=== PATIENT | male | born 1980 | race Two or more races ===

== ENCOUNTER 2018-01-21 11:13 | Emergency (ER) | payer SELFPAY ==
--- NOTE | 2018-01-21 11:49 | ER Document Report ---
ED Medical Screen (RME) - General Chief Complaint: Thumb Injury Stated Complaint: WOUND CHECK Time Seen by Provider: 01/21/18 11:32 Notes: RME DISCLOSURE I have seen this patient as part of a Rapid Medical Evaluation and, if applicable, placed any initially appropriate orders. The patient will be seen and fully evaluated, including a full history and physical exam, by a provider ( in Main ED or Fast Track) when a room becomes available. HISTORY LIMITED 2/2 NON-[place] ISLAND[place] SPEAKING 37-year-old male here with complaints of left thumb pain and infection that has been ongoing for the past few days. 3 days ago, he cut his left hand on an unknown object but did not go see a physician. He has not been taking anything for the symptoms. He has, since cutting it, had swelling redness and pain. TRAVEL OUTSIDE OF THE [place] IN LAST 30 DAYS: No - Related Data Allergies/Adverse Reactions: No Known Allergies Allergy (Verified 01/21/18 11:14) Past Medical History Renal/ Medical History: Denies: Hx Peritoneal Dialysis - Immunizations Hx Diphtheria, Pertussis, Tetanus Vaccination: No Physical Exam - Vital signs Vitals: Temp Pulse Resp BP Pulse Ox 98.8 F 100 17 182/108 H 99 01/21/18 11:17 01/21/18 11:17 01/21/18 11:17 01/21/18 11:17 01/21/18 11:17 Course - Vital Signs Vital signs: Temp Pulse Resp BP Pulse Ox 98.8 F 100 17 182/108 H 99 01/21/18 11:17 01/21/18 11:17 01/21/18 11:17 01/21/18 11:17 01/21/18 11:17
[2018-01-21 12:30] LABS: ABSOLUTE LYMPHOCYTES (AUTO) 0.4 10^3/uL (0.5-4.7); ABSOLUTE MONOCYTES (AUTO) 0.3 10^3/uL (0.1-1.4); ABSOLUTE NEUT (AUTO) 4.8 10^3/uL (1.7-8.2); BASOPHILS % (AUTO) 0.6 % (0-2); EOSINOPHILS % (AUTO) 0.3 % (0-6); HEMATOCRIT 45.3 % (37.9-51.0); HEMOGLOBIN 15.5 g/dL (13.5-17.0); LYMPHOCYTES % (AUTO) 7.5 % (13-45); MEAN CORPUSCULAR HEMOGLOBIN 33.1 pg (27.0-33.4); MEAN CORPUSCULAR HGB CONC 34.2 g/dL (32.0-36.0); MEAN CORPUSCULAR VOLUME 97 fl (80-97); MONOCYTES % (AUTO) 5.6 % (3-13); PLATELET COUNT 112 10^3/uL (150-450); RED BLOOD COUNT 4.67 10^6/uL (4.35-5.55); RED CELL DISTRIBUTION WIDTH 14.3 % (11.5-14.0); TOTAL CELLS COUNTED % (AUTO) 100 %; WHITE BLOOD COUNT 5.6 10^3/uL (4.0-10.5)
--- NOTE | 2018-01-21 12:32 | RADIOLOGY REPORT (SQ) ---
EXAM DESCRIPTION: FINGER LEFT COMPLETED DATE/TIME: 01/21/2018 12:20 pm REASON FOR STUDY: eval osteomyelitis for infected L thumb COMPARISON: None. NUMBER OF VIEWS: Three views. TECHNIQUE: AP, lateral, and oblique images acquired of the left thumb. LIMITATIONS: None. FINDINGS: MINERALIZATION: Normal. BONES: No acute fracture or dislocation. There is no plain film evidence for bony involvement by ost eomyelitis. SOFT TISSUES: Soft tissue swelling is identified involving the 1st digit. No radiopaque foreign body is identified. OTHER: No other significant finding. IMPRESSION: No acute fracture dislocation. No plain film evidence for bony involvement by osteomyel itis. Other findings as noted above COMMENT: SITE OF TRAUMA/COMPLAINT MARKED/STAMP COMPLETED: Yes TECHNICAL DOCUMENTATION: JOB ID: [id number] [employer]- All Rights Reserved Reading location - IP/workstation name: [email or web address]
[2018-01-21 12:51] LABS: ANION GAP 18 (5-19); BLOOD UREA NITROGEN 7 mg/dL (7-20); CALCIUM 10.6 mg/dL (8.4-10.2); CARBON DIOXIDE 23 mmol/L (22-30); CHLORIDE 103 mmol/L (98-107); GLUCOSE 108 mg/dL (75-110); POTASSIUM 4.4 mmol/L (3.6-5.0); SODIUM 143.7 mmol/L (137-145)
[2018-01-21 13:15] LABS: ERYTHROCYTE SEDIMENTATION RATE 26 mm/hr (0-15)
[2018-01-21] MEDS ORDERED: ACETAMINOPHEN 325 MG TABLET PO ONE (13:58)
[2018-01-21] MEDS ORDERED: DIPH/PERTUSS(ACELL)/TETANUS VAC/PF 0.5 ML SYR (>=10YO) IM ONE (13:58)
[2018-01-21] MEDS ORDERED: CEFTRIAXONE INJ 1000 MG VIAL IV ONE (14:45)
--- NOTE | 2018-01-21 15:44 | ER Document Report ---
ED General - General Chief Complaint: Thumb Injury Stated Complaint: WOUND CHECK Time Seen by Provider: 01/21/18 11:32 Mode of Arrival: Ambulatory Information source: Patient TRAVEL OUTSIDE OF THE [place] IN LAST 30 DAYS: No - HPI Patient complains to provider of: cut left thumb Onset: Other - saturday Onset/Duration: Sudden Severity: Moderate Associated symptoms: None Exacerbated by: Denies Relieved by: Denies Similar symptoms previously: No Recently seen / treated by doctor: No Notes: Patient states that he was home cutting wood and he cut his left thumb on Saturday. He states he did not come to be seen because he had been drinking alcohol and was drunk. 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 and so we used 1 of the Cymraes speaking personnel in the emergency department - Related Data Allergies/Adverse Reactions: No Known Allergies Allergy (Verified 01/21/18 11:14) Past Medical History - General Information source: Patient - Social History Smoking Status: Never Smoker Frequency of alcohol use: Social Drug Abuse: None Lives with: Family Family History: Reviewed & Not Pertinent Patient has suicidal ideation: No Patient has homicidal ideation: No - Past Medical History Cardiac Medical History: Reports: None Pulmonary Medical History: Reports: None EENT Medical History: Reports: None Neurological Medical History: Reports: None Endocrine Medical History: Reports: None Renal/ Medical History: Reports: None. Denies: Hx Peritoneal Dialysis Malignancy Medical History: Reports None GI Medical History: Reports: None Musculoskeltal Medical History: Reports None Skin Medical History: Reports None Psychiatric Medical History: Reports: None Traumatic Medical History: Reports: None Infectious Medical History: Reports: None Past Surgical History: Reports: None - Immunizations Hx Diphtheria, Pertussis, Tetanus Vaccination: No Review of Systems - Review of Systems Constitutional: No symptoms reported EENT: No symptoms reported Cardiovascular: No symptoms reported Respiratory: No symptoms reported Gastrointestinal: No symptoms reported Genitourinary: No symptoms reported Male Genitourinary: No symptoms reported Musculoskeletal: See HPI Skin: No symptoms reported Hematologic/Lymphatic: No symptoms reported Neurological/Psychological: No symptoms reported Physical Exam - Vital signs Vitals: Temp Pulse Resp BP Pulse Ox 98.8 F 100 17 182/108 H 99 01/21/18 11:17 01/21/18 11:17 01/21/18 11:17 01/21/18 11:17 01/21/18 11:17 - Notes Notes: PHYSICAL EXAMINATION: GENERAL: Well-appearing, well-nourished and in no acute distress. HEAD: Atraumatic, normocephalic. EYES: Pupils equal round and reactive to light, extraocular movements intact, sclera anicteric, conjunctiva are normal. ENT: Nares patent, oropharynx clear without exudates. Moist mucous membranes. NECK: Normal range of motion, supple without lymphadenopathy LUNGS: Breath sounds clear to auscultation bilaterally and equal. No wheezes rales or rhonchi. HEART: Regular rate and rhythm without murmurs ABDOMEN: Soft, nontender, nondistended abdomen. No guarding, no rebound. No masses appreciated. Musculoskeletal: Normal range of motion, no pitting or edema. No cyanosis. Patient has 2 cm laceration to the pad of his left thumb distal to the IP joint. There is no signs or symptoms or infection. There is no foreign body with exploration. Patient has full range of motion of his thumb. It is neurovascularly intact. NEUROLOGICAL: Cranial nerves grossly intact. Normal speech, normal gait. Normal sensory, motor exams PSYCH: Normal mood, normal affect. SKIN: Warm, Dry, normal turgor, no rashes or lesions noted. Course - Vital Signs Vital signs: Temp Pulse Resp BP Pulse Ox 98.8 F 100 17 182/108 H 99 01/21/18 11:17 01/21/18 11:17 01/21/18 11:17 01/21/18 11:17 01/21/18 11:17 - Laboratory Result Diagrams: 01/21/18 12:01 01/21/18 12:01 Laboratory results interpreted by me: 01/21/18 01/21/18 12:01 12:01 RDW 14.3 H Plt Count 112 L Seg Neutrophils % 86.0 H Lymphocytes % 7.5 L Absolute Lymphocytes 0.4 L ESR 26 H Calcium 10.6 H Discharge - Discharge Clinical Impression: Thumb laceration, Tetanus toxoid vaccination administered at current visit Condition: Stable Disposition: HOME, SELF-CARE Instructions: Tetanus Immunization Given ([facility]), Laceration Care ([facility]), Prophylactic Antibiotic ([facility]) Additional Instructions: Follow up with your physician tomorrow for further care or return to the ED IMMEDIATELY if symptoms worsen or new concerns occur. If you cannot afford to follow up with your primary care physician a list of low cost clinics have been provided at the end of your discharge papers as well. Prescriptions: Cephalexin Monohydrate [Keflex 500 mg Capsule] 500 mg PO Q6H 5 Days #20 capsule Hydrocodone/Acetaminophen [Letart 5-325 mg Tablet] 1 tab PO Q6 3 Days #12 tablet Referrals: [facility] [Outside] - Follow up as needed Print Language: Cymraes
[2018-01-21 16:05] VITALS: BP 169/90
== END 2018-01-21 16:05 | disposition home or self-care (01) ==
LOC: ER 11:13
DX: S61.012A Laceration without foreign body of left thumb without damage to nail, initial encounter (principal); W45.8XXA Other foreign body or object entering through skin, initial encounter; Y93.89 Activity, other specified; Y92.009 Unspecified place in unspecified non-institutional (private) residence as the place of occurrence of the external cause; Z23 Encounter for immunization
CPT/HCPCS: 99283; 90471; 96365; 36415; 87040; 85025; 85652; 80048; 73140; 90715; J0696

== ENCOUNTER 2019-03-18 06:37 | Emergency (ER) | payer SELFPAY ==
--- NOTE | 2019-03-18 09:33 | ER Document Report ---
ED General - General Chief Complaint: Vomiting Stated Complaint: ABDOMINAL PAIN Time Seen by Provider: 03/18/19 09:20 Primary Care Provider: QUINCY HINKLE MD [ACTIVE STAFF] - Follow up as needed (This is the number the GI doctor) Mode of Arrival: Ambulatory Information source: Patient Notes: This is a 38-year-old Maltese-speaking man who was referred to the emergency room because of elevated liver function test. Patient does state he has had intermittent right-sided abdominal pain for the past week. He denies being on any medicines or any allergies to medicines. He denies cigarette smoking. He does report 3 beers after working every once in a while. He does work several hours a day. Otherwise no medical problems. He denies any fever or abdominal pain. He denies any medical problems when he was in [place]. Patient was seen at a local urgent care and had blood work. When the liver enzymes were elevated, he was promptly referred to the emergency room. Review of systems: Patient does report that he gets discomfort when laying down flat and he frequently regurgitates food. TRAVEL OUTSIDE OF THE [place] IN LAST 30 DAYS: No - HPI Onset: Last week Onset/Duration: Gradual Quality of pain: No pain Severity: None Pain Level: Denies Associated symptoms: denies: Chills, Headache, Shortness of breath Exacerbated by: Denies Relieved by: Denies Similar symptoms previously: Yes Recently seen / treated by doctor: Yes - Related Data Allergies/Adverse Reactions: No Known Allergies Allergy (Verified 01/21/18 11:14) Past Medical History - General Information source: Friend - Translation via friend - Social History Smoking Status: Never Smoker Cigarette use (# per day): No Chew tobacco use (# tins/day): No Frequency of alcohol use: Often-severe Lives with: Friend Family History: Reviewed & Not Pertinent Patient has suicidal ideation: No Patient has homicidal ideation: No - Medical History Medical History: Negative Renal/ Medical History: Denies: Hx Peritoneal Dialysis Surgical Hx: Negative - Immunizations Hx Diphtheria, Pertussis, Tetanus Vaccination: No Review of Systems - Review of Systems Constitutional: denies: Chills, Fever EENT: No symptoms reported Cardiovascular: denies: Chest pain, Palpitations, Heart racing Respiratory: No symptoms reported Gastrointestinal: See HPI Genitourinary: No symptoms reported Male Genitourinary: No symptoms reported Musculoskeletal: No symptoms reported Skin: No symptoms reported Hematologic/Lymphatic: No symptoms reported Neurological/Psychological: No symptoms reported Physical Exam - Vital signs Vitals: Temp Pulse Resp BP Pulse Ox 98.9 F 89 20 147/92 H 99 03/18/19 06:49 03/18/19 06:49 03/18/19 06:49 03/18/19 06:49 03/18/19 06:49 Notes: Physical exam: GENERAL: 88-year-old man, alert and oriented x3, no acute distress HEAD: Atraumatic, normocephalic. EYES: Pupils equal round and reactive to light, extraocular movements intact, sclera anicteric, conjunctiva are normal. ENT: TMs normal, nares patent, oropharynx clear without exudates. Moist mucous membranes. NECK: Normal range of motion, supple without obvious mass or JVD. LUNGS: Breath sounds clear to auscultation bilaterally and equal. No wheezes ra les or rhonchi. HEART: Regular rate and rhythm without murmurs, rubs or gallops. ABDOMEN: Soft, normoactive bowel sounds. No tenderness to palpation. No guarding, no rebound. No masses appreciated. EXTREMITIES: Normal range of motion, no pitting or edema. No clubbing or cyanosis. NEUROLOGICAL: Cranial nerves II through XII grossly intact. Normal speech, moving all extremities. PSYCH: Normal mood, normal affect. SKIN: Warm, Dry, normal turgor, no rashes or lesions noted. Course - Vital Signs Vital signs: Temp Pulse Resp BP Pulse Ox 98.8 F 89 18 137/92 H 100 03/18/19 15:16 03/18/19 15:16 03/18/19 15:16 03/18/19 15:16 03/18/19 15:16 - Laboratory Result Diagrams: 03/18/19 09:32 03/18/19 09:32 Laboratory results interpreted by me: 03/18/19 03/18/19 03/18/19 09:32 09:32 09:32 RBC 4.30 L MCV 98 H RDW 14.5 H Seg Neuts % (Manual) 92 H Lymphocytes % (Manual) 3 L Abs Lymphs (Manual) 0.2 L Calcium 10.4 H AST 235 H ALT 346 H Alkaline Phosphatase 147 H Total Protein 9.1 H Albumin 5.1 H Urine Protein 30 H Urine Blood LARGE H - Diagnostic Test Radiology reviewed: Image reviewed, Reports reviewed - Ultrasound shows no gallbladder tenderness, normal gallbladder wall, no dilated biliary ducts. There is some sludge. CT of the abdomen shows no hydronephrosis or intra- abdominal acute process Discharge - Discharge Clinical Impression: Hepatitis, GERD (gastroesophageal reflux disease) Condition: Stable Disposition: HOME, SELF-CARE Instructions: Hepatitis ([facility]), Reflux Disease (GERD) ([facility]) Additional Instructions: Your liver enzymes are elevated. The ultrasound of the liver look good. There was no evidence of infection of your gallbladder. I want you to avoid all alcohol and beer. I want you to avoid Tylenol You can take ibuprofen for pain. You do need to follow-up with a primary care doctor: I left the number for the [facility]. Also want you to follow-up with a GI doctor: I left the number to Dr. Hinkle on the chart. I do think you have symptoms of reflux as well. I want you to take the medicine as prescribed. Prescriptions: Omeprazole Magnesium [Prilosec Otc] 20 mg PO GERARD #30 tablet. Referrals: QUINCY HINKLE MD [ACTIVE STAFF] - Follow up as needed (This is the number the GI doctor)
[2019-03-18 09:52] LABS: INTERNATIONAL RATION (INR) 0.91; PROTHROMBIN TIME 12.7 SEC (11.4-15.4)
[2019-03-18 09:55] LABS: APPEARANCE,URINE SLIGHTLY-CLOUDY; BILIRUBIN,URINE NEGATIVE (NEGATIVE); COLOR,URINE YELLOW; GLUCOSE, URINE NEGATIVE (NEGATIVE); HEMATOCRIT 42.1 % (37.9-51.0); HEMOGLOBIN 14.3 g/dL (13.5-17.0); KETONES,URINE NEGATIVE (NEGATIVE); LEUKOCYTE ESTERASE,URINE NEGATIVE (NEGATIVE); MEAN CORPUSCULAR HEMOGLOBIN 33.2 pg (27.0-33.4); MEAN CORPUSCULAR VOLUME 98 fl (80-97); NITRITE,URINE NEGATIVE (NEGATIVE); PLATELET COUNT 156 10^3/uL (150-450); PROTEIN,URINE 30 mg/dL (NEGATIVE); RED CELL DISTRIBUTION WIDTH 14.5 % (11.5-14.0); URINE SPECIFIC GRAVITY 1.016; UROBILINOGEN,URINE NEGATIVE mg/dL (<2.0)
[2019-03-18 10:05] LABS: ALANINE AMINOTRANSFERASE 346 U/L (21-72); ALBUMIN 5.1 g/dL (3.5-5.0); ALKALINE PHOSPHATASE 147 U/L (38-126); ANION GAP 12 (5-19); ASPARTATE AMINO TRANSFERASE 235 U/L (17-59); BILIRUBIN,DIRECT 0.2 mg/dL (0.0-0.4); BILIRUBIN,TOTAL 0.6 mg/dL (0.2-1.3); BLOOD UREA NITROGEN 9 mg/dL (7-20); CALCIUM 10.4 mg/dL (8.4-10.2); CARBON DIOXIDE 27 mmol/L (22-30); CHLORIDE 103 mmol/L (98-107); GLUCOSE 110 mg/dL (75-110); LIPASE 168.7 U/L (23-300); POTASSIUM 4.9 mmol/L (3.6-5.0); SODIUM 142.3 mmol/L (137-145); TOTAL PROTEIN 9.1 g/dL (6.3-8.2)
[2019-03-18 10:23] LABS: ABSOLUTE LYMPHOCYTES# (MANUAL) 0.2 10^3/uL (0.5-4.7); ABSOLUTE MONOCYTES # (MANUAL) 0.3 10^3/uL (0.1-1.4); ABSOLUTE NEUTROPHILS# (MANUAL) 4.6 10^3/uL (1.7-8.2); BASOPHILS % (MANUAL) 0 % (0-2); EOSINOPHILS % (MANUAL) 0 % (0-6); LYMPHOCYTES % (MANUAL) 3 % (13-45); MONOCYTES % (MANUAL) 5 % (3-13); SEGMENTED NEUTROPHILS % (MAN) 92 % (42-78); TOTAL CELLS COUNTED 100
[2019-03-18 10:24] LABS: ANISOCYTOSIS SLIGHT; PLATELET COMMENT ADEQUATE; POIKILOCYTOSIS 1+; STOMATOCYTES 1+
--- NOTE | 2019-03-18 11:02 | RADIOLOGY REPORT (SQ) ---
EXAM DESCRIPTION: CHEST 2 VIEWS COMPLETED DATE/TIME: 03/18/2019 10:44 am REASON FOR STUDY: cp COMPARISON: None. EXAM PARAMETERS: NUMBER OF VIEWS: two views TECHNIQUE: Digital Frontal and Lateral radiographic views of the chest acquired. RADIATION DOSE: NA LIMITATIONS: none FINDINGS: LUNGS AND PLEURA: No opacities, masses or pneumothorax. No pleural effusion. MEDIASTINUM AND HILAR STRUCTURES: No masses or contour abnormalities. HEART AND VASCULAR STRUCTURES: Heart normal size. No evidence for failure. BONES: No acute findings. HARDWARE: None in the chest. OTHER: No other significant finding. IMPRESSION: NO ACUTE RADIOGRAPHIC FINDING IN THE CHEST. TECHNICAL DOCUMENTATION: JOB ID: [id number] [employer]- All Rights Reserved Reading location - IP/workstation name: [email or web address]
--- NOTE | 2019-03-18 11:22 | RADIOLOGY REPORT (SQ) ---
EXAM DESCRIPTION: U/S ABDOMEN LTD W/DOPPLER COMPLETED DATE/TIME: 03/18/2019 11:10 am REASON FOR STUDY: elevated LFTs, right abd pain COMPARISON: None. TECHNIQUE: Dynamic and static grayscale images acquired of the abdomen and recorded on PACS. Leenao kaylee selected color Doppler and spectral images recorded. LIMITATIONS: None. FINDINGS: PANCREAS: No masses. Visualized pancreatic duct normal caliber. LIVER: No masses. Increased echogenicity. LIVER VASCULATURE: Normal directional flow of the main portal vein and hepatic veins. GALLBLADDER: No stones. Sludge in the gallbladder. Normal wall thickness. No pericholecystic fluid. ULTRASOUND-DETECTED AGUSTIN'S SIGN: Negative. INTRAHEPATIC DUCTS AND COMMON DUCT: CBD and intrahepatic ducts normal caliber. No filling defects. INFERIOR VENA CAVA: Normal flow. AORTA: No aneurysm. RIGHT KIDNEY: Normal size. Normal echogenicity. No solid or suspicious masses. No hydronephrosis. No calcifications. PERITONEAL AND RIGHT PLEURAL SPACE: No ascites or effusions. OTHER: No other significant findings. IMPRESSION: 1. Gall sludge without evidence of discrete calculi. No gallbladder wall thickening. No pericholecystic fluid. No biliary ductal dilation. Negative sonographic Agustin sign. Patency of the cystic and common bile ducts may be evaluated by HIDA if desired. 2. Hepatic steatosis. TECHNICAL DOCUMENTATION: JOB ID: [id number] [employer]- All Rights Reserved Reading location - IP/workstation name: [email or web address]
--- NOTE | 2019-03-18 13:24 | RADIOLOGY REPORT (SQ) ---
EXAM DESCRIPTION: CT ABD/PELVIS NO ORAL OR IV COMPLETED DATE/TIME: 03/18/2019 1:11 pm REASON FOR STUDY: right flank pain COMPARISON: None. TECHNIQUE: CT scan of the abdomen and pelvis performed without intravenous or oral contrast. Images reviewed with lung, soft tissue, and bone windows. Reconstructed coronal and sagittal MPR images revi ewed. All images stored on PACS. All CT scanners at this facility use dose modulation, iterative reconstruction, and/or weight based d osing when appropriate to reduce radiation dose to as low as reasonably achievable (ALARA). [facility]: Dose Right [facility]: CareDose [facility]: Dose Right [facility]: Teradose 4D [facility]: Smart Mulu RADIATION DOSE: CT Rad equipment meets quality standard of care and radiation dose reduction techniq ues were employed. CTDIvol: 5.0 mGy. DLP: 281 mGy-cm.mGy. LIMITATIONS: None. FINDINGS: LOWER CHEST: No significant findings. No nodules or infiltrates. NON-CONTRASTED LIVER, SPLEEN, ADRENALS: Evaluation limited by lack of IV contrast. No identified sign ificant masses. PANCREAS: No masses. No peripancreatic inflammatory changes. GALLBLADDER: No identified stones by CT criteria. No inflammatory changes to suggest cholecystitis. RIGHT KIDNEY AND URETER: No suspicious masses. Assessment limited by lack of IV contrast. No signif icant calcifications. No hydronephrosis or hydroureter. LEFT KIDNEY AND URETER: No suspicious masses. Assessment limited by lack of IV contrast. No signifi cant calcifications. No hydronephrosis or hydroureter. AORTA AND RETROPERITONEUM: No aneurysm. No retroperitoneal masses or adenopathy. BOWEL AND PERITONEAL CAVITY: No obvious masses or inflammatory changes. No free fluid. APPENDIX: Surgically absent. PELVIS, BLADDER, AND ABDOMINAL WALL:No abnormal masses. No free fluid. Bladder normal. BONES: No significant findings. OTHER: No other significant finding. IMPRESSION: NO SIGNIFICANT OR ACUTE PROCESS IN THE ABDOMEN OR PELVIS. COMMENT: Quality ID # [id number]: Final reports with documentation of one or more dose reduction techniques (e.g., Automated exposure control, adjustment of the mA and/or kV according to patient size, use of iterative reconstruction technique) TECHNICAL DOCUMENTATION: JOB ID: [id number] [employer]- All Rights Reserved Reading location - IP/workstation name: [email or web address]
[2019-03-18 15:17] VITALS: BP 137/92
== END 2019-03-18 15:18 | disposition home or self-care (01) ==
LOC: ER 06:37
DX: K75.9 Inflammatory liver disease, unspecified (principal); K21.9 Gastro-esophageal reflux disease without esophagitis; R79.89 Other specified abnormal findings of blood chemistry; R10.9 Unspecified abdominal pain; R11.10 Vomiting, unspecified
CPT/HCPCS: 36415; 71046; 74176; 76705; 80053; 81001; 83690; 85025; 85610; 93976; 99284

== ENCOUNTER 2019-05-23 15:23 | Emergency (ER) | payer SELFPAY ==
[2019-05-23 15:28] VITALS: BP 171/92
--- NOTE | 2019-05-23 15:41 | ER Document Report ---
ED Medical Screen (RME) - General Chief Complaint: General Weakness Stated Complaint: NOSEBLEED Time Seen by Provider: 05/23/19 15:35 Mode of Arrival: Ambulatory Information source: Patient, Friend Notes: Patient presents to the emergency department with frequent nosebleeds. Reports he was treated for this back in March given some kind of medication and felt much better. He reports return of the nosebleeds recently. He has been prescribed lisinopril for his high blood pressure but just got the prescription filled . Reports he had another really bad nosebleed Saturday night . Patient now feels very weak. Patient speaks primarily Burkinan. Friend at the side was translating. I have greeted and performed a rapid initial assessment of this patient. A comprehensive ED assessment and evaluation of the patient, analysis of test results and completion of the medical decision making process will be conducted by additional ED providers. Dictation of this chart was performed using voice recognition software; therefore, there may be some unintended grammatical errors. TRAVEL OUTSIDE OF THE [place] IN LAST 30 DAYS: No - Related Data Allergies/Adverse Reactions: No Known Allergies Allergy (Verified 05/23/19 15:23) Past Medical History - Social History Chew tobacco use (# tins/day): No Frequency of alcohol use: Occasional Drug Abuse: None - Past Medical History Cardiac Medical History: Reports: Hx Hypertension Renal/ Medical History: Denies: Hx Peritoneal Dialysis - Immunizations Hx Diphtheria, Pertussis, Tetanus Vaccination: No Physical Exam - Vital signs Vitals: Temp Pulse Resp BP Pulse Ox 98.9 F 93 18 171/92 H 94 05/23/19 15:28 05/23/19 15:28 05/23/19 15:28 05/23/19 15:28 05/23/19 15:28 Course - Vital Signs Vital signs: Temp Pulse Resp BP Pulse Ox 98.9 F 93 18 171/92 H 94 05/23/19 15:28 05/23/19 15:28 05/23/19 15:28 05/23/19 15:28 05/23/19 15:28
[2019-05-23 15:59] LABS: ABSOLUTE EOSINOPHILS # (AUTO) 0.1 10^3/uL (0.0-0.6); ABSOLUTE LYMPHOCYTES (AUTO) 0.6 10^3/uL (0.5-4.7); ABSOLUTE MONOCYTES (AUTO) 0.7 10^3/uL (0.1-1.4); ABSOLUTE NEUT (AUTO) 2.3 10^3/uL (1.7-8.2); BASOPHILS % (AUTO) 1.3 % (0-2); EOSINOPHILS % (AUTO) 2.3 % (0-6); HEMATOCRIT 38.4 % (37.9-51.0); HEMOGLOBIN 13.1 g/dL (13.5-17.0); LYMPHOCYTES % (AUTO) 16.9 % (13-45); MEAN CORPUSCULAR HEMOGLOBIN 33.2 pg (27.0-33.4); MEAN CORPUSCULAR HGB CONC 34.1 g/dL (32.0-36.0); MEAN CORPUSCULAR VOLUME 97 fl (80-97); MONOCYTES % (AUTO) 17.9 % (3-13); PLATELET COUNT 100 10^3/uL (150-450); RED BLOOD COUNT 3.96 10^6/uL (4.35-5.55); RED CELL DISTRIBUTION WIDTH 16.2 % (11.5-14.0); SEGMENTED NEUTROPHILS % (AUTO) 61.6 % (42-78); TOTAL CELLS COUNTED % (AUTO) 100 %; WHITE BLOOD COUNT 3.7 10^3/uL (4.0-10.5)
[2019-05-23] MEDS ORDERED: THROMBIN (BOVINE) 5000 UNIT EPITAXIS KIT TP ONE (16:07)
[2019-05-23] MEDS ORDERED: OXYMETAZOLINE HCL 0.05% NASAL SPRAY 15 ML BOTTLE NASL ONE (16:07)
[2019-05-23] MEDS ORDERED: LIDOCAINE 4% TOPICAL SOLN 50 ML TOP ONE (16:07)
[2019-05-23 16:13] LABS: INTERNATIONAL RATION (INR) 0.99; PROTHROMBIN TIME 13.1 SEC (11.4-15.4)
[2019-05-23 16:14] LABS: PARTIAL THROMBOPLASTIN TIME 29.7 SEC (23.5-35.8)
[2019-05-23 16:18] LABS: ALANINE AMINOTRANSFERASE 243 U/L (21-72); ALBUMIN 4.8 g/dL (3.5-5.0); ALKALINE PHOSPHATASE 106 U/L (38-126); ANION GAP 12 (5-19); ASPARTATE AMINO TRANSFERASE 343 U/L (17-59); BILIRUBIN,DIRECT 0.3 mg/dL (0.0-0.4); BILIRUBIN,TOTAL 0.7 mg/dL (0.2-1.3); BLOOD UREA NITROGEN 6 mg/dL (7-20); CALCIUM 9.8 mg/dL (8.4-10.2); CARBON DIOXIDE 27 mmol/L (22-30); CHLORIDE 100 mmol/L (98-107); GLUCOSE 90 mg/dL (75-110); POTASSIUM 4.4 mmol/L (3.6-5.0); SODIUM 139.1 mmol/L (137-145); TOTAL PROTEIN 8.4 g/dL (6.3-8.2)
--- NOTE | 2019-05-23 16:18 | ER Document Report ---
ED General - General Chief Complaint: General Weakness Stated Complaint: NOSEBLEED Time Seen by Provider: 05/23/19 15:35 Mode of Arrival: Ambulatory Information source: Patient, Friend, [facility] Records Notes: 39-year-old male with hypertension presents with complaint of nosebleeds. Patient states that he has had 3 nosebleeds this week. His last nosebleed was yesterday. His first nosebleed was 5 days prior to arrival and reportedly last over 2 hours. Patient denies any prior similar symptoms, trauma to the nose, headache. Patient is complaining of general malaise but states that he works outside daily in the heat. Patient was recently placed on lisinopril for his high blood pressure. TRAVEL OUTSIDE OF THE [place] IN LAST 30 DAYS: No - HPI Onset: Other Onset/Duration: Intermittent Quality of pain: No pain Severity: None Pain Level: Denies Associated symptoms: Weakness. denies: Chest pain, Headache, Nausea, Vomiting, Shortness of breath Exacerbated by: Denies Relieved by: Denies Similar symptoms previously: Yes Recently seen / treated by doctor: Yes - Related Data Allergies/Adverse Reactions: No Known Allergies Allergy (Verified 05/23/19 15:23) Past Medical History - General Information source: Patient, Friend - Social History Smoking Status: Never Smoker Chew tobacco use (# tins/day): No Frequency of alcohol use: Occasional Drug Abuse: None Lives with: Family Family History: Reviewed & Not Pertinent Patient has suicidal ideation: No Patient has homicidal ideation: No - Past Medical History Cardiac Medical History: Reports: Hx Hypertension Renal/ Medical History: Denies: Hx Peritoneal Dialysis - Immunizations Hx Diphtheria, Pertussis, Tetanus Vaccination: No Review of Systems - Review of Systems Notes: REVIEW OF SYSTEMS: CONSTITUTIONAL : Denies fever, chills, or sweats. Denies recent illness. Denies weight loss, recent hospitalizations. EENT: Denies visual changes, eye pain. Denies sore throat, oral lesions, difficulty swallowing. CARDIOVASCULAR: Denies chest pain. Denies palpitations. Denies lower extremity edema. RESPIRATORY: Denies cough. Denies shortness of breath, wheezing. GASTROINTESTINAL: Denies abdominal pain or distention. Denies nausea, vomiting, or diarrhea. Denies blood in vomitus, stools, or per rectum. Denies black, tarry stools. Denies constipation. GENITOURINARY: Denies difficulty urinating, painful urination, frequency, blood in urine, testicular pain or penile discharge. MUSCULOSKELETAL: Denies back or neck pain or stiffness. Denies joint pain or swelling. SKIN: Denies rash, lesions or sores. HEMATOLOGIC : Denies easy bruising or bleeding. LYMPHATIC: Denies swollen glands. NEUROLOGICAL: Denies confusion or altered mental status. Denies loss of consciousness. Denies dizziness or lightheadedness. Denies headache. Denies paralysis. Denies problems difficulty with ambulation, slurred speech. Denies sensory loss, numbness, or tingling. Denies seizures. PSYCHIATRIC: Denies anxiety or stress. Denies depression, suicidal ideation, or Physical Exam - Vital signs Vitals: Temp Pulse Resp BP Pulse Ox 98.9 F 93 18 171/92 H 94 05/23/19 15:28 05/23/19 15:28 05/23/19 15:28 05/23/19 15:28 05/23/19 15:28 - Notes Notes: PHYSICAL EXAMINATION: GENERAL: Well-appearing, well-nourished and in no acute distress. HEAD: Atraumatic, normocephalic. EYES: Pupils equal round and reactive to light, extraocular movements intact, sclera anicteric, conjunctiva are normal. ENT: Nares patent, no active bleeding from the naris but there is a raw area anteriorly on the right side. Oropharynx clear without exudates. Moist mucous membranes. NECK: Normal range of motion, supple without lymphadenopathy LUNGS: Breath sounds clear to auscultation bilaterally and equal. No wheezes rales or rhonchi. HEART: Regular rate and rhythm without murmurs ABDOMEN: Soft, nontender, nondistended abdomen. No guarding, no rebound. No masses appreciated. Musculoskeletal: Normal range of motion, no pitting or edema. No cyanosis. NEUROLOGICAL: Cranial nerves grossly intact. Normal speech, normal gait. Normal sensory, motor exams PSYCH: Normal mood, normal affect. SKIN: Warm, Dry, normal turgor, no rashes or lesions noted. Course - Re-evaluation Re-evalutation: Laboratory 05/23/19 05/23/19 05/23/19 15:45 15:45 15:52 WBC 3.7 L RBC 3.96 L Hgb 13.1 L Hct 38.4 MCV 97 MCH 33.2 MCHC 34.1 RDW 16.2 H Plt Count 100 L Seg Neutrophils % 61.6 Lymphocytes % 16.9 Monocytes % 17.9 H Eosinophils % 2.3 Basophils % 1.3 Absolute Neutrophils 2.3 Absolute Lymphocytes 0.6 Absolute Monocytes 0.7 Absolute Eosinophils 0.1 Absolute Basophils 0.0 PT 13.1 INR 0.99 APTT 29.7 Sodium 139.1 Potassium 4.4 Chloride 100 Carbon Dioxide 27 Anion Gap 12 BUN 6 L Creatinine 0.55 Est GFR ( Amer) > 60 Est GFR (Non-Af Amer) > 60 Glucose 90 Calcium 9.8 Total Bilirubin 0.7 Direct Bilirubin 0.3 Neonat Total Bilirubin Not Reportable Neonat Direct Bilirubin Not Reportable Neonat Indirect Bili Not Reportable AST 343 H ALT 243 H Alkaline Phosphatase 106 Total Protein 8.4 H Albumin 4.8 Temp Pulse Resp BP Pulse Ox 98.9 F 93 18 171/92 H 94 05/23/19 15:28 05/23/19 15:28 05/23/19 15:28 05/23/19 15:28 05/23/19 15:28 05/24/19 23:51 39-year-old male presents with concern for 3 nosebleeds in the last week. He is not actively bleeding. Patient was given Afrin, advised to use Emmet nasal mist. Patient was observed in the emergency department for over 2 hours without recurrence of nosebleeding. Patient was evaluated and treated as appropriate for the patient's presenting symptoms and complaint, with consideration of any critical or life threatening conditions that may be associated with their obtained history and exam as noted above. All results were discussed with patient. Patient provided the opportunity to ask questions, and express concerns. Patient was educated on treatments based on their presumed diagnosis as noted above. At this time we will discharge the patient with return precautions and follow-up recommendations. Verbal discharge instructions given a the bedside. Medication warnings reviewed. Patient is in agreement with this plan and has verbalized understanding of return precautions. After careful consideration I feel that that patient can be safely discharged from the emergency department, they were advised to followup with a primary care physician in 2-3 days. Dictation on this chart was performed using voice recognition software and may result in unintended grammatical, spelling, syntax or errors. - Vital Signs Vital signs: Temp Pulse Resp BP Pulse Ox 98.9 F 93 18 171/92 H 94 05/23/19 15:28 05/23/19 15:28 05/23/19 15:28 05/23/19 15:28 05/23/19 15:28 - Laboratory Result Diagrams: 05/23/19 15:45 05/23/19 15:45 Laboratory results interpreted by me: 05/23/19 05/23/19 15:45 15:45 WBC 3.7 L RBC 3.96 L Hgb 13.1 L RDW 16.2 H Plt Count 100 L Monocytes % 17.9 H BUN 6 L AST 343 H ALT 243 H Total Protein 8.4 H Discharge - Discharge Clinical Impression: Epistaxis Condition: Good Disposition: HOME, SELF-CARE Instructions: Nosebleed Instructions ([facility]) Additional Instructions: You were seen today for a nosebleed. If this restarts please apply direct pressure to the area for 15 minutes without releasing pressure. You can use 4-5 sprays the Afrin (oxymetazoline) spray that was given to you here in the emergency room into the affected side prior to applying the pressure. You need to apply vasaline or a similar product along the inside of the side of the nose that is bleeding twice daily to help heal the inside of your nose. Please return to emergency department if these measures do not control the bleeding. Please also return if you pass out, have significant pain of the nose or face, or any other symptoms that are concerning to you. Your primary care doctor regarding today's visit.it. Forms: Elevated Blood Pressure
[2019-05-23] MEDS ORDERED: SODIUM CHLORIDE NASAL SPRAY 44 ML NASL ONE (18:23)
[2019-05-23] MEDS ORDERED: SODIUM CHLORIDE NASAL SPRAY 44 ML ONE (18:57)
== END 2019-05-23 18:35 | disposition home or self-care (01) ==
LOC: ER 15:23
DX: R04.0 Epistaxis (principal); R53.1 Weakness; I10 Essential (primary) hypertension
CPT/HCPCS: 99283; 36415; 85025; 85610; 85730; 80053; J3490 ×4

== ENCOUNTER 2019-05-23 22:56 | Inpatient (IN) | payer SELFPAY ==
[2019-05-24] MEDS ORDERED: NORMAL SALINE 1000 ML 1,000 ML IV ONE ×2 (00:15→07:01)
[2019-05-24] MEDS ORDERED: DIAZEPAM INJ 10 MG/2 ML DISP.SYRIN IV ONE ×2 (00:16→06:59)
[2019-05-24 00:53] LABS: ABSOLUTE EOSINOPHILS # (AUTO) 0.1 10^3/uL (0.0-0.6); ABSOLUTE LYMPHOCYTES (AUTO) 0.7 10^3/uL (0.5-4.7); ABSOLUTE MONOCYTES (AUTO) 0.7 10^3/uL (0.1-1.4); ABSOLUTE NEUT (AUTO) 3.6 10^3/uL (1.7-8.2); EOSINOPHILS % (AUTO) 2.1 % (0-6); HEMATOCRIT 39.5 % (37.9-51.0); HEMOGLOBIN 13.5 g/dL (13.5-17.0); LYMPHOCYTES % (AUTO) 13.1 % (13-45); MEAN CORPUSCULAR HEMOGLOBIN 33.2 pg (27.0-33.4); MEAN CORPUSCULAR HGB CONC 34.1 g/dL (32.0-36.0); MEAN CORPUSCULAR VOLUME 98 fl (80-97); MONOCYTES % (AUTO) 14.3 % (3-13); PLATELET COUNT 102 10^3/uL (150-450); RED BLOOD COUNT 4.05 10^6/uL (4.35-5.55); SEGMENTED NEUTROPHILS % (AUTO) 69.5 % (42-78); TOTAL CELLS COUNTED % (AUTO) 100 %; WHITE BLOOD COUNT 5.1 10^3/uL (4.0-10.5)
[2019-05-24 01:01] LABS: INTERNATIONAL RATION (INR) 1.01; PROTHROMBIN TIME 13.3 SEC (11.4-15.4)
[2019-05-24 01:12] LABS: APPEARANCE,URINE CLEAR; BILIRUBIN,URINE NEGATIVE (NEGATIVE); COLOR,URINE STRAW; GLUCOSE, URINE NEGATIVE (NEGATIVE); KETONES,URINE NEGATIVE (NEGATIVE); PROTEIN,URINE NEGATIVE (NEGATIVE); URINE SPECIFIC GRAVITY 1.004; UROBILINOGEN,URINE NEGATIVE mg/dL (<2.0)
[2019-05-24 01:13] LABS: LEUKOCYTE ESTERASE,URINE NEGATIVE (NEGATIVE); NITRITE,URINE NEGATIVE (NEGATIVE)
[2019-05-24 01:29] LABS: ALANINE AMINOTRANSFERASE 314 U/L (21-72); ALBUMIN 5.2 g/dL (3.5-5.0); ALKALINE PHOSPHATASE 145 U/L (38-126); ANION GAP 11 (5-19); ASPARTATE AMINO TRANSFERASE 450 U/L (17-59); BILIRUBIN,DIRECT 0.4 mg/dL (0.0-0.4); BILIRUBIN,TOTAL 0.8 mg/dL (0.2-1.3); BLOOD UREA NITROGEN 11 mg/dL (7-20); CARBON DIOXIDE 30 mmol/L (22-30); CHLORIDE 98 mmol/L (98-107); GLUCOSE 96 mg/dL (75-110); POTASSIUM 4.3 mmol/L (3.6-5.0); SODIUM 138.5 mmol/L (137-145); TOTAL PROTEIN 8.8 g/dL (6.3-8.2)
[2019-05-24 01:30] LABS: ACETAMINOPHEN < 10 ug/mL (10-30); ALCOHOL < 10 mg/dL (NONE DETECTED); SALICYLATE < 1.0 mg/dL (2.0-20.0)
[2019-05-24 02:09] LABS: URINE AMPHETAMINES SCREEN NEGATIVE; URINE BARBITURATES SCREEN NEGATIVE; URINE BENZODIAZEPINES SCREEN NEGATIVE; URINE COCAINE SCREEN NEGATIVE; URINE MARIJUANA (THC) SCREEN NEGATIVE; URINE METHADONE SCREEN NEGATIVE; URINE PHENCYCLIDINE SCREEN NEGATIVE
[2019-05-24] MEDS ORDERED: LORAZEPAM INJ 2 MG/1 ML VIAL IV ONE ×2 (03:17→15:30)
[2019-05-24] MEDS ORDERED: THIAMINE HCL 100 MG in NORMAL SALINE 50 ML IV ONE (07:00)
[2019-05-24] MEDS ORDERED: FOLIC ACID INJ 5 MG/1 ML 10 ML VIAL IV ONE (07:00)
--- NOTE | 2019-05-24 07:03 | ER Document Report ---
ED General - General Chief Complaint: Psych Problem Stated Complaint: MEDICATION ISSUE Time Seen by Provider: 05/23/19 23:35 Notes: Patient is a 31-year-old male who presents with complaint of some hallucinations and onset of tremor. Friend is at bedside. Friend speaks Colombian. I also used the medical administrative technician [id number] through [employer] to make sure were not missing any details. Patient was having high blood pressure never went to urgent care and saw physician. He was started on blood pressure medication yesterday. He was told he should not drink alcohol and take this medication therefore patient stopped drinking yesterday. He does drink on a daily basis. He cannot tell me exactly how much he typically drinks. Approximately 2 Hours Prior to Arrival He Started to Hallucinate. He Says He Would See her animals that were not there. His friend said he started become fidgety and tremulous as well. This is not typical for him. He said this did happen one time many years ago but went away on its own. He does now recognize that it went away after he started drinking alcohol again. Patient denies any recent fevers or infections. No recent head injuries. No headache. No vomiting. No other complaints at this time. TRAVEL OUTSIDE OF THE [place] IN LAST 30 DAYS: No - Related Data Allergies/Adverse Reactions: No Known Allergies Allergy (Verified 05/23/19 15:23) Past Medical History - Social History Smoking Status: Unknown if Ever Smoked Frequency of alcohol use: Heavy Drug Abuse: None Family History: Reviewed & Not Pertinent - Past Medical History Cardiac Medical History: Reports: Hx Hypertension Renal/ Medical History: Denies: Hx Peritoneal Dialysis - Immunizations Hx Diphtheria, Pertussis, Tetanus Vaccination: No Review of Systems - Review of Systems Notes: My Normal Review Basic REVIEW OF SYSTEMS: CONSTITUTIONAL : Denies fever, chills, or sweats. Denies recent illness. EENT: Denies eye, ear, throat, or mouth pain or symptoms. Denies nasal or sinus congestion. CARDIOVASCULAR: Denies chest pain. RESPIRATORY: Denies cough, cold, or chest congestion. Denies shortness of breath, difficulty breathing, or wheezing. GASTROINTESTINAL: Denies abdominal pain. Denies nausea, vomiting, or diarrhea. MUSCULOSKELETAL: Denies neck or back pain or joint pain or swelling. SKIN: Denies rash or skin lesions. HEMATOLOGIC : Denies easy bruising or bleeding. LYMPHATIC: Denies swollen, enlarged glands. NEUROLOGICAL: Some Hallucinations. Tremor. PSYCHIATRIC: Denies anxiety or stress or depression. ALL OTHER SYSTEMS REVIEWED AND NEGATIVE. Physical Exam - Vital signs Vitals: Temp Pulse Resp BP Pulse Ox 98.6 F 90 18 139/76 H 97 05/23/19 23:02 05/23/19 23:02 05/23/19 23:02 05/23/19 23:02 05/23/19 23:02 - Notes Notes: General Appearance: Well nourished, alert, cooperative, no acute distress, no obvious discomfort. Vitals: reviewed, See vital signs table. Head: no swelling or tenderness to the head Eyes: PERRL, EOMI, Conjuctiva clear Mouth: No decreasd moisture Lungs: No wheezing, No rales, No rhonci, No accessory muscle use, good air exchange bilaterally. Heart: Normal rate, Regular rythm, No murmur, no rub Abdomen: Normal BS, soft, No rigidity, No abdominal tenderness, No guarding, no rebound, no abdominal masses, no organomegaly Extremities: strength 5/5 in all extremities, good pulses in all extremities, no swelling or tenderness in the extremities, no edema. Skin: warm, dry, appropriate color, no rash Neuro: Speech is clear. Patient is oriented x3. Patient does have resting tremor consistent with that of alcohol withdrawal. Tremor does worsen when he moves. Patient does not have any focal neurologic deficits. Cranial nerves II through XII are intact. Is able to move all extremities and has good strength in all 4 extremities. Course - Re-evaluation Re-evalutation: 05/24/19 07:37 I did speak with the hospitalist. He agrees to evaluate the patient for admiss ion. My concern is patient is having alcohol withdrawal. His symptoms started approximately 12 hours after his last drink of alcohol. He has tremor on clinical exam very consistent with that of alcohol withdrawal. His vital signs surprisingly are normal with a normal heart rate despite the tremor that he has. His delirium has improved sniffily however his tremor seems to be worsening some spite that Valium and Ativan is received. I have ordered another dose of Valium. Hospitalist agrees to come evaluate the patient for admission. With the patient including physical exam and disposition and reevaluation performed using [facility]. - Vital Signs Vital signs: Temp Pulse Resp BP Pulse Ox 98.3 F 66 18 146/88 H 99 05/24/19 01:05 05/24/19 01:05 05/24/19 01:05 05/24/19 01:05 05/24/19 01:05 - Laboratory Result Diagrams: 05/24/19 00:35 05/24/19 00:35 Laboratory results interpreted by me: 05/24/19 05/24/19 05/24/19 00:35 00:35 00:35 RBC 4.05 L MCV 98 H RDW 16.0 H Plt Count 102 L Monocytes % 14.3 H AST 450 H ALT 314 H Alkaline Phosphatase 145 H Total Protein 8.8 H Albumin 5.2 H Urine Ascorbic Acid 20 H Salicylates < 1.0 L Acetaminophen < 10 L Discharge - Discharge Clinical Impression: Alcohol intoxication Qualifiers: Complication of substance-induced condition: with delirium Qualified Code(s): F10.921 - Alcohol use, unspecified with intoxication delirium Condition: Stable Disposition: ADMITTED INPATIENT Admitting Provider: Blanche (Hospitalist)
[2019-05-24] MEDS ORDERED: LORAZEPAM INJ 2 MG/1 ML VIAL IV PRN (09:29)
[2019-05-24] MEDS ORDERED: DEXTROSE 50%-WATER 25 GM/50 ML DISP.SYRIN IV PRN ×2 (09:29)
[2019-05-24] MEDS ORDERED: ONDANSETRON HCL INJ/PF 4 MG/2 ML SDV IV PRN (09:29)
[2019-05-24] MEDS ORDERED: GLUCAGON,HUMAN RECOMB 1 MG INJ SUBCUT PRN (09:29)
[2019-05-24] MEDS ORDERED: ACETAMINOPHEN 325 MG TABLET PO PRN (09:29)
[2019-05-24] MEDS ORDERED: DIAZEPAM 5 MG TABLET PO PRN (09:29)
[2019-05-24] MEDS ORDERED: DEXTROSE 40% GEL 15 GM TUBE PO PRN ×2 (09:29)
[2019-05-24] MEDS ORDERED: IPRATROPIUM/ALBUTEROL 0.5-2.5 MG/3 ML AMPUL NEB PRN (09:29)
--- NOTE | 2019-05-24 09:40 | EKG REPORT ---
SEVERITY:- ABNORMAL ECG - SINUS RHYTHM LEFT VENTRICULAR HYPERTROPHY ST ELEV, PROBABLE NORMAL EARLY REPOL PATTERN : Confirmed by: Crescencio Christie 24-May-2019 09:39:52
[2019-05-24] MEDS: ENOXAPARIN SODIUM INJ 40 MG/0.4 ML DISP.SYRIN SUBCUT SCH (10:31)
[2019-05-24] MEDS: FAMOTIDINE INJ/PF 20 MG/2 ML SDV IV SCH ×2 (10:59→22:26)
[2019-05-24] MEDS: DEXTROSE 5%-1/2 NORMAL SALINE 1,000 ML IV PRN ×2 (11:04→21:00)
[2019-05-24] MEDS ORDERED: HALOPERIDOL LACTATE INJ 5 MG/1 ML VIAL IV PRN (12:15)
[2019-05-24] MEDS: LORAZEPAM INJ 2 MG/1 ML VIAL IV PRN ×2 (13:23→22:26)
--- NOTE | 2019-05-24 13:26 | PDOC H&P ---
History of Present Illness Admission Date/PCP: 05/24/19 08:18 Patient complains of: alcohol withdrawl History of Present Illness: ADELINE LIGHT is a 39 year old male with past medical history of hypertension who presented to the ED with anxiety and agitation. He is and speaks very little Romansh. His friend is at bedside. He does not have any family. Most of his family is back in [place]. I spoke with patient and the friend who is at bedside. Per patient and friend he has a history of severe alcohol abuse which includes beer about 20-25 a day and he is been doing it for many years. Unfortunately he ended up going to the urgent care due to high blood pressure and he was told to stop drinking so he went cold turkey. On Saturday he was not feeling well so his friend gave him 2 cans of beer and on Saturday he had another 2 cans. Since then he has not been doing well and hence due to his increasing symptoms he was brought to the hospital for evaluation. At this time he is denying any chest pain, shortness of breath, dizziness or headaches. He does complain of some abdominal tenderness in the midepigastric region. In the ED he was found to be very anxious and agitated and hospitalist were consulted for admission for alcohol withdrawal. Past Medical History Cardiac Medical History: Reports: Hypertension Social History Smoking Status: Unknown if Ever Smoked - Advance Directive Resuscitation Status: Full Code Family History Family History: Reviewed & Not Pertinent Parental Family History Reviewed: No - Patient is agitated Children Family History Reviewed: Unknown Sibling(s) Family History Reviewed.: Unknown Medication/Allergy Home Medications: Lisinopril [Prinivil] 10 mg PO DAILY 05/23/19 Allergies/Adverse Reactions: No Known Allergies Allergy (Verified 05/23/19 15:23) Review of Systems All systems: reviewed and no additional remarkable complaints except as stated Constitutional: ABSENT: chills, fever(s) Cardiovascular: ABSENT: chest pain Respiratory: ABSENT: cough, dyspnea Gastrointestinal: ABSENT: nausea, vomiting Integumentary: ABSENT: rash Neurological: ABSENT: syncope Psychiatric: PRESENT: anxiety Physical Exam Vital Signs: Temp Pulse Resp BP Pulse Ox 98.4 F 78 16 149/97 H 100 05/24/19 07:25 05/24/19 07:25 05/24/19 07:25 05/24/19 07:25 05/24/19 07:25 Intake & Output 05/23/19 05/24/19 05/25/19 06:59 06:59 06:59 Intake Total 1000 Balance 1000 Weight 151 lb 7.321 oz General appearance: PRESENT: no acute distress Head exam: PRESENT: atraumatic, normocephalic Eye exam: PRESENT: EOMI. ABSENT: scleral icterus Ear exam: PRESENT: normal external ear exam Mouth exam: PRESENT: dry mucosa, tongue midline Respiratory exam: PRESENT: clear to auscultation disha, symmetrical Cardiovascular exam: PRESENT: +S1, +S2 Pulses: PRESENT: +2 pedal pulses bilateral GI/Abdominal exam: PRESENT: normal bowel sounds, soft, tenderness - Mild mid epigastric region tenderness Extremities exam: ABSENT: pedal edema Neurological exam: PRESENT: alert, awake, CN II-XII grossly intact Psychiatric exam: PRESENT: agitated, anxious Skin exam: PRESENT: dry, warm Results Laboratory Results: 05/24/19 00:35 05/24/19 00:35 05/24/19 05/24/19 05/24/19 00:35 00:35 00:35 WBC 5.1 RBC 4.05 L Hgb 13.5 Hct 39.5 MCV 98 H MCH 33.2 MCHC 34.1 RDW 16.0 H Plt Count 102 L Seg Neutrophils % 69.5 Lymphocytes % 13.1 Monocytes % 14.3 H Eosinophils % 2.1 Basophils % 1.0 Absolute Neutrophils 3.6 Absolute Lymphocytes 0.7 Absolute Monocytes 0.7 Absolute Eosinophils 0.1 Absolute Basophils 0.0 Sodium 138.5 Potassium 4.3 Chloride 98 Carbon Dioxide 30 Anion Gap 11 BUN 11 Creatinine 0.54 Est GFR ( Amer) > 60 Est GFR (Non-Af Amer) > 60 Glucose 96 Calcium 10.0 Total Bilirubin 0.8 AST 450 H ALT 314 H Alkaline Phosphatase 145 H Ammonia 19.8 Total Protein 8.8 H Albumin 5.2 H Urine Color Urine Appearance Urine pH Ur Specific Wayne Urine Protein Urine Glucose (UA) Urine Ketones Urine Blood Urine Nitrite Ur Leukocyte Esterase Urine WBC (Auto) Urine RBC (Auto) 05/24/19 00:35 WBC RBC Hgb Hct MCV MCH MCHC RDW Plt Count Seg Neutrophils % Lymphocytes % Monocytes % Eosinophils % Basophils % Absolute Neutrophils Absolute Lymphocytes Absolute Monocytes Absolute Eosinophils Absolute Basophils Sodium Potassium Chloride Carbon Dioxide Anion Gap BUN Creatinine Est GFR ( Amer) Est GFR (Non-Af Amer) Glucose Calcium Total Bilirubin AST ALT Alkaline Phosphatase Ammonia Total Protein Albumin Urine Color STRAW Urine Appearance CLEAR Urine pH 7.0 Ur Specific Wayne 1.004 Urine Protein NEGATIVE Urine Glucose (UA) NEGATIVE Urine Ketones NEGATIVE Urine Blood NEGATIVE Urine Nitrite NEGATIVE Ur Leukocyte Esterase NEGATIVE Urine WBC (Auto) 0 Urine RBC (Auto) 0 Assessment and Plan - Diagnosis (1) Alcohol dependence with withdrawal Is this a current diagnosis for this admission?: Yes (2) Alcohol intoxication Qualifiers: Complication of substance-induced condition: with delirium Qualified Cod e(s): F10.921 - Alcohol use, unspecified with intoxication delirium Is this a current diagnosis for this admission?: Yes (3) Essential hypertension Is this a current diagnosis for this admission?: Yes (4) Alcohol withdrawal delirium Is this a current diagnosis for this admission?: Yes (5) Elevated LFTs Is this a current diagnosis for this admission?: Yes - Time Time Spent with patient: 35 or more minutes Anticipated discharge: Home - Inpatient Certification Based on my medical assessment, after consideration of the patient's comorbidi ties, presenting symptoms, or acuity I expect that the services needed warrant INPATIENT care.: Yes I certify that my determination is in accordance with my understanding of Jacinto walker's requirements for reasonable and necessary INPATIENT services [42 CFR 412.3e].: Yes Medical Necessity: Failure to Improve With Outpatient Therapy, Need Close Monitoring Due to Risk of Patient Decompensation, Need For IV Fluids, Need For Continuous Telemetry Monitoring, Risk of Complication if Not Cared For in Hospital - Plan Summary Plan Summary: Alcohol withdrawal with delirium-he is very anxious and agitated-we will start him on Ativan 1 every 3 and titrate up. We will also start him Valium 10 mg every 8 scheduled. We will start him on IV banana bag. He has a history of alcohol abuse which includes 20-25 beers daily. His last drink was about 48 hours ago. If he does not improve with IV medication then we may have to consider a Precedex drip and move him to the ICU. At this time he can go to the [facility] Elevated LFTs-most likely secondary to his alcohol abuse-we will send for hepatitis panel and HIV panel. We will also get a right upper quadrant ultrasound tomorrow when he is a little bit more calm. Hypertension-most recently diagnosed and started on lisinopril-we will hold at this time and use hydralazine as needed.
[2019-05-24] MEDS ORDERED: HALOPERIDOL LACTATE INJ 5 MG/1 ML VIAL IV ONE (14:00)
[2019-05-24] MEDS ORDERED: MIDAZOLAM HCL 50 MG/100 ML RTUINJ IV PRN (14:23)
--- NOTE | 2019-05-24 14:33 | Progress Note ---
Provider Note Provider Note: Called by nursing that patient is still very agitated and anxious even after Ativan, Valium, and Haldol IV . patient is still agitated. Spoke with nursing- we will transfer patient to ICU instead of IMCU. We will start him on a Precedex drip and also place him on a restraints. I with pharmacy, charge nurse, ICU nurse and the friend in the room. I spent more than 40 critical care minutes in the care of this ill patient who is in imminent danger of dying. More than 50% of my time was spent on coordinating care.
[2019-05-24] MEDS: DEXMEDETOMIDINE IN NS 400 MCG/100 ML RTUPB IV PRN (14:49)
[2019-05-24] MEDS: DIAZEPAM 5 MG TABLET PO SCH (18:01)
[2019-05-24] MEDS: NORMAL SALINE 1000 ML 1,000 ML with POTASSIUM CHLORIDE 20 MEQ, MAGNESIUM SULFATE 8 MEQ,... IV SCH ×5 (21:00)
[2019-05-25] MEDS: DIAZEPAM 5 MG TABLET PO SCH ×3 (01:01→17:09)
[2019-05-25] MEDS: LORAZEPAM INJ 2 MG/1 ML VIAL IV PRN ×2 (02:40→05:53)
[2019-05-25] MEDS: HYDRALAZINE HCL INJ/PF 20 MG/1 ML SDV IV PRN ×2 (03:20→17:29)
[2019-05-25] MEDS: DEXMEDETOMIDINE IN NS 400 MCG/100 ML RTUPB IV PRN ×3 (03:44→23:58)
[2019-05-25 03:56] LABS: ABSOLUTE EOSINOPHILS # (AUTO) 0.1 10^3/uL (0.0-0.6); ABSOLUTE LYMPHOCYTES (AUTO) 0.4 10^3/uL (0.5-4.7); ABSOLUTE MONOCYTES (AUTO) 0.7 10^3/uL (0.1-1.4); ABSOLUTE NEUT (AUTO) 3.5 10^3/uL (1.7-8.2); BASOPHILS % (AUTO) 0.6 % (0-2); EOSINOPHILS % (AUTO) 2.3 % (0-6); HEMATOCRIT 38.5 % (37.9-51.0); HEMOGLOBIN 13.1 g/dL (13.5-17.0); LYMPHOCYTES % (AUTO) 8.3 % (13-45); MEAN CORPUSCULAR HEMOGLOBIN 33.5 pg (27.0-33.4); MEAN CORPUSCULAR VOLUME 99 fl (80-97); MONOCYTES % (AUTO) 14.8 % (3-13); PLATELET COUNT 111 10^3/uL (150-450); RED BLOOD COUNT 3.91 10^6/uL (4.35-5.55); RED CELL DISTRIBUTION WIDTH 16.4 % (11.5-14.0); TOTAL CELLS COUNTED % (AUTO) 100 %; WHITE BLOOD COUNT 4.7 10^3/uL (4.0-10.5)
[2019-05-25 04:22] LABS: ALANINE AMINOTRANSFERASE 384 U/L (21-72); ALBUMIN 4.5 g/dL (3.5-5.0); ALKALINE PHOSPHATASE 95 U/L (38-126); ANION GAP 10 (5-19); ASPARTATE AMINO TRANSFERASE 479 U/L (17-59); BILIRUBIN,DIRECT 0.3 mg/dL (0.0-0.4); BILIRUBIN,TOTAL 1.1 mg/dL (0.2-1.3); BLOOD UREA NITROGEN 9 mg/dL (7-20); CALCIUM 9.7 mg/dL (8.4-10.2); CARBON DIOXIDE 25 mmol/L (22-30); CHLORIDE 107 mmol/L (98-107); GLUCOSE 87 mg/dL (75-110); LIPASE 113.6 U/L (23-300); POTASSIUM 4.1 mmol/L (3.6-5.0); SODIUM 142.4 mmol/L (137-145); TOTAL PROTEIN 7.8 g/dL (6.3-8.2)
[2019-05-25 05:30] LABS: FOLATE > 20.00 ng/mL (>2.76)
--- NOTE | 2019-05-25 06:56 | EKG REPORT ---
SEVERITY:- ABNORMAL ECG - SINUS RHYTHM LEFT VENTRICULAR HYPERTROPHY ST ELEV, PROBABLE NORMAL EARLY REPOL PATTERN : Confirmed by: Crescencio Christie 25-May-2019 06:55:48
[2019-05-25] MEDS ORDERED: LORAZEPAM INJ 2 MG/1 ML VIAL IV PRN (08:36)
--- NOTE | 2019-05-25 08:36 | PDOC PROGRESS REPORT ---
Subjective Progress Note for:: 05/25/19 Subjective:: 39 year old male with past medical history of hypertension who presented to the ED with anxiety and agitation. He is and speaks very little Palauan. His friend is at bedside. He does not have any family. Most of his family is back in [place]. I spoke with patient and the friend who is at bedside. Per patient and friend he has a history of severe alcohol abuse which includes beer about 20-25 a day and he is been doing it for many years. Unfortunately he ended up going to the urgent care due to high blood pressure and he was told to stop drinking so he went cold turkey. On Saturday he was not feeling well so his friend gave him 2 cans of beer and on Saturday he had another 2 cans. Since then he has not been doing well and hence due to his increasing symptoms he was brought to the hospital for evaluation. At this time he is denying any chest pain, shortness of breath, dizziness or headaches. He does complain of some abdominal tenderness in the midepigastric region. In the ED he was found to be very anxious and agitated and hospitalist were consulted for admission for alcohol withdrawal. 05/25/[id number]-vbci-old male heavy alcohol user drinks 10 beers every day did not use any drugs not a smoker admitted for alcohol intoxication he was transferred from IMCU to ICU yesterday started on Precedex he is also on Valium and Ativan as needed no acute events in the last 24 hours. Afebrile. Comfortably in the bed communicating in [place]. Reason For Visit: ALCOHOL WITHDRAWAL Physical Exam Vital Signs: Temp Pulse Resp BP Pulse Ox 97.8 F 54 L 32 H 162/90 H 100 05/24/19 20:13 05/24/19 22:13 05/25/19 06:00 05/25/19 05:23 05/25/19 06:00 Intake & Output 05/24/19 05/25/19 05/26/19 06:59 06:59 06:59 Intake Total 1000 2293 1023 Output Total 2250 Balance 1000 43 1023 Weight 68.7 kg 66.5 kg General appearance: PRESENT: no acute distress Head exam: PRESENT: atraumatic Eye exam: PRESENT: PERRLA Mouth exam: PRESENT: moist, tongue midline Neck exam: ABSENT: carotid bruit, JVD, lymphadenopathy, thyromegaly Respiratory exam: PRESENT: clear to auscultation disha. ABSENT: rales, rhonchi, wheezes Cardiovascular exam: PRESENT: RRR. ABSENT: diastolic murmur, rubs, systolic murmur GI/Abdominal exam: PRESENT: normal bowel sounds, soft. ABSENT: distended, guarding, mass, organolmegaly, rebound, tenderness Rectal exam: PRESENT: deferred Extremities exam: PRESENT: full ROM. ABSENT: calf tenderness, clubbing, pedal edema Neurological exam: PRESENT: alert, awake, oriented to person, oriented to place, oriented to time, oriented to situation, CN II-XII grossly intact. ABSENT: motor sensory deficit Psychiatric exam: PRESENT: appropriate affect, normal mood. ABSENT: homicidal ideation, suicidal ideation Skin exam: PRESENT: dry, intact, warm. ABSENT: cyanosis, rash Results Laboratory Results: 05/25/19 03:38 05/25/19 03:38 05/24/19 05/25/19 05/25/19 10:40 03:38 03:38 WBC 4.7 RBC 3.91 L Hgb 13.1 L Hct 38.5 MCV 99 H MCH 33.5 H MCHC 34.0 RDW 16.4 H Plt Count 111 L Seg Neutrophils % 74.0 Lymphocytes % 8.3 L Monocytes % 14.8 H Eosinophils % 2.3 Basophils % 0.6 Absolute Neutrophils 3.5 Absolute Lymphocytes 0.4 L Absolute Monocytes 0.7 Absolute Eosinophils 0.1 Absolute Basophils 0.0 Sodium 142.4 Potassium 4.1 Chloride 107 Carbon Dioxide 25 Anion Gap 10 BUN 9 Creatinine 0.58 Est GFR ( Amer) > 60 Est GFR (Non-Af Amer) > 60 Glucose 87 Calcium 9.7 Magnesium 2.3 Total Bilirubin 1.1 AST 479 H ALT 384 H Alkaline Phosphatase 95 Ammonia 10.5 Total Protein 7.8 Albumin 4.5 Lipase 113.6 Vitamin B12 856.0 Folate > 20.00 TSH 05/25/19 03:38 WBC RBC Hgb Hct MCV MCH MCHC RDW Plt Count Seg Neutrophils % Lymphocytes % Monocytes % Eosinophils % Basophils % Absolute Neutrophils Absolute Lymphocytes Absolute Monocytes Absolute Eosinophils Absolute Basophils Sodium Potassium Chloride Carbon Dioxide Anion Gap BUN Creatinine Est GFR ( Amer) Est GFR (Non-Af Amer) Glucose Calcium Magnesium Total Bilirubin AST ALT Alkaline Phosphatase Ammonia Total Protein Albumin Lipase Vitamin B12 Folate TSH 2.17 Assessment and Plan - Diagnosis (1) Alcohol dependence with withdrawal Is this a current diagnosis for this admission?: Yes Plan: Alcohol withdrawal with delirium-he is very anxious and agitated-we will start him on Ativan 1 every 3 and titrate up. We will also start him Valium 10 mg every 8 scheduled. We will start him on IV banana bag. He has a history of alcohol abuse which includes 20-25 beers daily. His last drink was about 48 hours ago. If he does not improve with IV medication then we may have to consider a Precedex drip and move him to the ICU. At this time [facility] can go to the [facility] 05/25/[id number]-dutg-old male admitted with alcohol withdrawal with the delirium he was started on Precedex he is also on Valium as needed receiving IV banana bag daily he drinks 20-25 beers per day. To start him back on Ativan 2 mg IV every 2 hours as needed. Continue to watch for DTs. (2) Elevated LFTs Is this a current diagnosis for this admission?: Yes Plan: Elevated LFTs-most likely secondary to his alcohol abuse-we will send for hepatitis panel and HIV panel. We will also get a right upper quadrant u ltrasound tomorrow when he is a little bit more calm. 05/25/2019-patient admitted with elevated LFTs most likely secondary to alcohol abuse. Hepatitis panel HIV panel are pending. (3) Essential hypertension Is this a current diagnosis for this admission?: Yes Plan: -most recently diagnosed and started on lisinopril-we will hold at this time and use hydralazine as needed. 05/25/2019-patient has history of diabetes mellitus newly diagnosed his vital signs today blood pressure is 162/90 he is on IV hydralazine every 6 as needed and also on lisinopril plan is to continue the present management. - Time Time Spent with patient: 25-34 minutes Smoking Cessation Education: over 10 minutes Anticipated discharge: Home
[2019-05-25] MEDS: DEXTROSE 5%-1/2 NORMAL SALINE 1,000 ML IV PRN (08:56)
[2019-05-25] MEDS: ENOXAPARIN SODIUM INJ 40 MG/0.4 ML DISP.SYRIN SUBCUT SCH (10:11)
[2019-05-25] MEDS: FAMOTIDINE INJ/PF 20 MG/2 ML SDV IV SCH ×2 (10:11→21:44)
[2019-05-25] MEDS: NORMAL SALINE 1000 ML 1,000 ML with POTASSIUM CHLORIDE 20 MEQ, MAGNESIUM SULFATE 8 MEQ,... IV SCH ×5 (17:23)
--- NOTE | 2019-05-25 19:46 | RADIOLOGY REPORT (SQ) ---
EXAM DESCRIPTION: U/S ABDOMEN LIMITED W/O DOP COMPLETED DATE/TIME: 05/25/2019 6:59 pm REASON FOR STUDY: elevated LFTs COMPARISON: 03/18/2019 TECHNIQUE: Dynamic and static grayscale images acquired of the abdomen and recorded on PACS. Leenao kaylee selected color Doppler and spectral images recorded. LIMITATIONS: Patient in restraints. FINDINGS: PANCREAS: No masses. Visualized pancreatic duct normal caliber. LIVER: 1.5 cm parenchymal cyst. Echotexture increased consistent with fatty infiltration. LIVER VASCULATURE: Normal directional flow of the main portal vein and hepatic veins. GALLBLADDER: No stones. Minimal sludge. Normal wall thickness. No pericholecystic fluid. ULTRASOUND-DETECTED SHUKLA'S SIGN: Negative. INTRAHEPATIC DUCTS AND COMMON DUCT: CBD and intrahepatic ducts normal caliber. No filling defects. INFERIOR VENA CAVA: Normal flow. AORTA: No aneurysm identified. RIGHT KIDNEY: Normal size. Normal echogenicity. No solid or suspicious masses. No hydronephros is. No calcifications. PERITONEAL AND RIGHT PLEURAL SPACE: No ascites or effusions. OTHER: No other significant findings. IMPRESSION: NO ACUTE FINDINGS. Fatty liver and 1.5 cm parenchymal cyst. No gallstones or focal inf lammatory changes. TECHNICAL DOCUMENTATION: JOB ID: [id number] [id number] 2010 [employer]- All Rights Reserved Reading location - IP/workstation name: [email or web address]
[2019-05-26] MEDS: DIAZEPAM 5 MG TABLET PO SCH ×3 (01:37→17:07)
[2019-05-26 04:09] LABS: ABSOLUTE BASOPHILS # (AUTO) 0.1 10^3/uL (0.0-0.2); ABSOLUTE EOSINOPHILS # (AUTO) 0.1 10^3/uL (0.0-0.6); ABSOLUTE LYMPHOCYTES (AUTO) 0.6 10^3/uL (0.5-4.7); ABSOLUTE MONOCYTES (AUTO) 0.7 10^3/uL (0.1-1.4); ABSOLUTE NEUT (AUTO) 2.8 10^3/uL (1.7-8.2); BASOPHILS % (AUTO) 1.4 % (0-2); EOSINOPHILS % (AUTO) 3.1 % (0-6); HEMATOCRIT 39.5 % (37.9-51.0); HEMOGLOBIN 13.3 g/dL (13.5-17.0); LYMPHOCYTES % (AUTO) 14.7 % (13-45); MEAN CORPUSCULAR HEMOGLOBIN 33.4 pg (27.0-33.4); MEAN CORPUSCULAR HGB CONC 33.7 g/dL (32.0-36.0); MEAN CORPUSCULAR VOLUME 99 fl (80-97); MONOCYTES % (AUTO) 16.7 % (3-13); PLATELET COUNT 130 10^3/uL (150-450); RED BLOOD COUNT 3.99 10^6/uL (4.35-5.55); RED CELL DISTRIBUTION WIDTH 16.4 % (11.5-14.0); SEGMENTED NEUTROPHILS % (AUTO) 64.1 % (42-78); TOTAL CELLS COUNTED % (AUTO) 100 %; WHITE BLOOD COUNT 4.3 10^3/uL (4.0-10.5)
[2019-05-26 04:29] LABS: ALANINE AMINOTRANSFERASE 310 U/L (21-72); ALBUMIN 4.3 g/dL (3.5-5.0); ALKALINE PHOSPHATASE 89 U/L (38-126); ANION GAP 10 (5-19); ASPARTATE AMINO TRANSFERASE 247 U/L (17-59); BILIRUBIN,DIRECT 0.3 mg/dL (0.0-0.4); BILIRUBIN,TOTAL 1.2 mg/dL (0.2-1.3); BLOOD UREA NITROGEN 7 mg/dL (7-20); CALCIUM 9.5 mg/dL (8.4-10.2); CARBON DIOXIDE 24 mmol/L (22-30); CHLORIDE 104 mmol/L (98-107); GLUCOSE 99 mg/dL (75-110); POTASSIUM 4.2 mmol/L (3.6-5.0); SODIUM 138.1 mmol/L (137-145); TOTAL PROTEIN 7.7 g/dL (6.3-8.2)
[2019-05-26] MEDS: DEXTROSE 5%-1/2 NORMAL SALINE 1,000 ML IV PRN (04:29)
[2019-05-26 06:37] LABS: HEPATITIS A AB IGM Negative (Negative); HEPATITIS B CORE AB IGM Negative (Negative); HEPATITS B SURFACE ANTIGEN Negative (Negative)
[2019-05-26 09:28] LABS: HEPATITIS C VIRUS ANTIBODY <0.1 s/co ratio (0.0-0.9)
[2019-05-26] MEDS: ENOXAPARIN SODIUM INJ 40 MG/0.4 ML DISP.SYRIN SUBCUT SCH (09:59)
[2019-05-26] MEDS: FAMOTIDINE INJ/PF 20 MG/2 ML SDV IV SCH ×2 (09:59→22:54)
[2019-05-26] MEDS: HYDRALAZINE HCL INJ/PF 20 MG/1 ML SDV IV PRN ×2 (10:00→15:16)
--- NOTE | 2019-05-26 11:20 | PDOC PROGRESS REPORT ---
Subjective Progress Note for:: 05/26/19 Subjective:: 39 year old male with past medical history of hypertension who presented to the ED with anxiety and agitation. He is and speaks very little Emirati. His friend is at bedside. He does not have any family. Most of his family is back in [place]. I spoke with patient and the friend who is at bedside. Per patient and friend he has a history of severe alcohol abuse which includes beer about 20-25 a day and he is been doing it for many years. Unfortunately he ended up going to the urgent care due to high blood pressure and he was told to stop drinking so he went cold turkey. On Saturday he was not feeling well so his friend gave him 2 cans of beer and on Saturday he had another 2 cans. Since then he has not been doing well and hence due to his increasing symptoms he was brought to the hospital for evaluation. At this time he is denying any chest pain, shortness of breath, dizziness or headaches. He does complain of some abdominal tenderness in the midepigastric region. In the ED he was found to be very anxious and agitated and hospitalist were consulted for admission for alcohol withdrawal. 05/25/[id number]-entb-old male heavy alcohol user drinks 10 beers every day did not use any drugs not a smoker admitted for alcohol intoxication he was transferred from IMCU to ICU yesterday started on Precedex he is also on Valium and Ativan as needed no acute events in the last 24 hours. Afebrile. Comfortably in the bed communicating in [place]i. 05/26/[id number]-avri-old male admitted with alcohol abuse and went through DTs he was stable and since yesterday. To stop Precedex today. To start him on a cardiac diet today. He is downgraded to telemetry today. No acute events in the last 24 hours. Afebrile. Reason For Visit: ALCOHOL WITHDRAWAL Physical Exam Vital Signs: Temp Pulse Resp BP Pulse Ox 98.8 F 61 14 158/106 H 98 05/26/19 08:00 05/26/19 10:00 05/26/19 10:00 05/26/19 10:00 05/26/19 10:00 Intake & Output 05/25/19 05/26/19 05/27/19 06:59 06:59 06:59 Intake Total 2293 4146 15 Output Total 2250 2080 900 Balance 43 2066 -885 Weight 66.5 kg 70.1 kg General appearance: PRESENT: no acute distress Head exam: PRESENT: atraumatic Eye exam: PRESENT: PERRLA Mouth exam: PRESENT: moist, tongue midline Respiratory exam: PRESENT: clear to auscultation disha. ABSENT: rales, rhonchi, wheezes Cardiovascular exam: PRESENT: RRR. ABSENT: diastolic murmur, rubs, systolic murmur GI/Abdominal exam: PRESENT: normal bowel sounds, soft. ABSENT: distended, guarding, mass, organolmegaly, rebound, tenderness Rectal exam: PRESENT: deferred Extremities exam: PRESENT: full ROM. ABSENT: calf tenderness, clubbing, pedal edema Neurological exam: PRESENT: alert, awake, oriented to person, oriented to place, oriented to time, oriented to situation, CN II-XII grossly intact. ABSENT: motor sensory deficit Psychiatric exam: PRESENT: appropriate affect, normal mood. ABSENT: homicidal ideation, suicidal ideation Results Laboratory Results: 05/26/19 03:55 05/26/19 03:55 05/26/19 05/26/19 03:55 03:55 WBC 4.3 RBC 3.99 L Hgb 13.3 L Hct 39.5 MCV 99 H MCH 33.4 MCHC 33.7 RDW 16.4 H Plt Count 130 L Seg Neutrophils % 64.1 Lymphocytes % 14.7 Monocytes % 16.7 H Eosinophils % 3.1 Basophils % 1.4 Absolute Neutrophils 2.8 Absolute Lymphocytes 0.6 Absolute Monocytes 0.7 Absolute Eosinophils 0.1 Absolute Basophils 0.1 Sodium 138.1 Potassium 4.2 Chloride 104 Carbon Dioxide 24 Anion Gap 10 BUN 7 Creatinine 0.57 Est GFR ( Amer) > 60 Est GFR (Non-Af Amer) > 60 Glucose 99 Calcium 9.5 Magnesium 2.1 Total Bilirubin 1.2 AST 247 H ALT 310 H Alkaline Phosphatase 89 Total Protein 7.7 Albumin 4.3 Impressions: Abdomen Ultrasound 05/25/19 08:00 IMPRESSION: NO ACUTE FINDINGS. Fatty liver and 1.5 cm parenchymal cyst. No gallstones or focal inflammatory changes. Assessment and Plan - Diagnosis (1) Alcohol dependence with withdrawal Is this a current diagnosis for this admission?: Yes Plan: Alcohol withdrawal with delirium-he is very anxious and agitated-we will start him on Ativan 1 every 3 and titrate up. We will also start him Valium 10 mg every 8 scheduled. We will start him on IV banana bag. He has a history of alcohol abuse which includes 20-25 beers daily. His last drink was about 48 hours ago. If he does not improve with IV medication then we may have to consider a Precedex drip and move him to the ICU. At this time he can go to the IMCU 05/25/[id number]-ezhw-old male admitted with alcohol withdrawal with the delirium he was started on Precedex he is also on Valium as needed receiving IV banana bag daily he drinks 20-25 beers per day. To start him back on Ativan 2 mg IV every 2 hours as needed. Continue to watch for DTs. 05/26/[id number]-mlaw-old male admitted with history of heavy alcohol use and alcohol withdrawal symptoms he is on Precedex until this morning which was successfully discontinued is not IV diazepam and IV Ativan PRN for agitation I in my opinion he is stable enough to go to the telemetry (2) Elevated LFTs Is this a current diagnosis for this admission?: Yes Plan: Elevated LFTs-most likely secondary to his alcohol abuse-we will send for hepatitis panel and HIV panel. We will also get a right upper quadrant ultrasound tomorrow when he is a little bit more calm. 05/25/2019-patient admitted with elevated LFTs most likely secondary to alcohol abuse. Hepatitis panel HIV panel are pending. 05/26/2019-patient was admitted with elevated LFTs most likely secondary to heavy alcohol abuse. Hepatitis panel is negative and HIV testing is negative. (3) Essential hypertension Is this a current diagnosis for this admission?: Yes Plan: -most recently diagnosed and started on lisinopril-we will hold at this time and use hydralazine as needed. 05/25/2019-patient has history of diabetes mellitus newly diagnosed his vital signs today blood pressure is 162/90 he is on IV hydralazine every 6 as needed and also on lisinopril plan is to continue the present management. 05/26/2019-patient's latest blood pressure today is 121/60 stable. He is on lisinopril 20 mg p.o. daily and to continue IV hydralazine every 6 PRN for systolic blood pressure more than 150. - Time Time Spent with patient: 25-34 minutes Medications reviewed and adjusted accordingly: Yes Anticipated discharge: Home
[2019-05-26] MEDS: NORMAL SALINE 1000 ML 1,000 ML with POTASSIUM CHLORIDE 20 MEQ, MAGNESIUM SULFATE 8 MEQ,... IV SCH ×5 (17:07)
[2019-05-27] MEDS: DIAZEPAM 5 MG TABLET PO SCH ×3 (03:09→17:08)
[2019-05-27 06:07] LABS: ABSOLUTE EOSINOPHILS # (AUTO) 0.1 10^3/uL (0.0-0.6); ABSOLUTE LYMPHOCYTES (AUTO) 0.5 10^3/uL (0.5-4.7); ABSOLUTE MONOCYTES (AUTO) 0.6 10^3/uL (0.1-1.4); BASOPHILS % (AUTO) 1.5 % (0-2); EOSINOPHILS % (AUTO) 2.6 % (0-6); HEMATOCRIT 40.4 % (37.9-51.0); HEMOGLOBIN 13.7 g/dL (13.5-17.0); LYMPHOCYTES % (AUTO) 16.6 % (13-45); MEAN CORPUSCULAR HEMOGLOBIN 33.3 pg (27.0-33.4); MEAN CORPUSCULAR HGB CONC 33.8 g/dL (32.0-36.0); MEAN CORPUSCULAR VOLUME 99 fl (80-97); MONOCYTES % (AUTO) 19.2 % (3-13); PLATELET COUNT 155 10^3/uL (150-450); RED CELL DISTRIBUTION WIDTH 16.1 % (11.5-14.0); SEGMENTED NEUTROPHILS % (AUTO) 60.1 % (42-78); TOTAL CELLS COUNTED % (AUTO) 100 %; WHITE BLOOD COUNT 3.3 10^3/uL (4.0-10.5)
[2019-05-27 06:30] LABS: ALANINE AMINOTRANSFERASE 259 U/L (21-72); ALBUMIN 4.4 g/dL (3.5-5.0); ALKALINE PHOSPHATASE 104 U/L (38-126); ANION GAP 10 (5-19); ASPARTATE AMINO TRANSFERASE 166 U/L (17-59); BILIRUBIN,DIRECT 0.4 mg/dL (0.0-0.4); BLOOD UREA NITROGEN 10 mg/dL (7-20); CALCIUM 9.6 mg/dL (8.4-10.2); CARBON DIOXIDE 23 mmol/L (22-30); CHLORIDE 107 mmol/L (98-107); GLUCOSE 88 mg/dL (75-110); POTASSIUM 4.8 mmol/L (3.6-5.0); SODIUM 140.2 mmol/L (137-145); TOTAL PROTEIN 7.7 g/dL (6.3-8.2)
[2019-05-27] MEDS: ENOXAPARIN SODIUM INJ 40 MG/0.4 ML DISP.SYRIN SUBCUT SCH (09:11)
[2019-05-27] MEDS: FAMOTIDINE INJ/PF 20 MG/2 ML SDV IV SCH (09:36)
--- NOTE | 2019-05-27 10:38 | PDOC PROGRESS REPORT ---
Subjective Subjective:: 39 year old male with past medical history of hypertension who presented to the ED with anxiety and agitation. He is and speaks very little Estonian. His friend is at bedside. He does not have any family. Most of his family is back in [place]. I spoke with patient and the friend who is at bedside. Per patient and friend he has a history of severe alcohol abuse which includes beer about 20-25 a day and he is been doing it for many years. Unfortunately he ended up going to the urgent care due to high blood pressure and he was told to stop drinking so he went cold turkey. On Saturday he was not feeling well so his friend gave him 2 cans of beer and on Saturday he had another 2 cans. Since then he has not been doing well and hence due to his increasing symptoms he was brought to the hospital for evaluation. At this time he is denying any chest pain, shortness of breath, dizziness or headaches. He does complain of some abdominal tenderness in the midepigastric region. In the ED he was found to be very anxious and agitated and hospitalist were consulted for admission for alcohol withdrawal. 05/25/[id number]-howu-old male heavy alcohol user drinks 10 beers every day did not use any drugs not a smoker admitted for alcohol intoxication he was transferred from IMCU to ICU yesterday started on Precedex he is also on Valium and Ativan as needed no acute events in the last 24 hours. Afebrile. Comfortably in the bed communicating in Latvian. 05/26/[id number]-ckmj-old male admitted with alcohol abuse and went through DTs he was stable and since yesterday. To stop Precedex today. To start him on a cardiac diet today. He is downgraded to telemetry today. No acute events in the last 24 hours. Afebrile. 05/27/2019-no acute events in the last 24 hours. Patient is afebrile. Blood pressure was slightly elevated 156/110. Plan is to adjust his blood pressure medications. Reason For Visit: ALCOHOL WITHDRAWAL Physical Exam Vital Signs: Temp Pulse Resp BP Pulse Ox 98.8 F 77 12 137/84 H 98 05/27/19 08:15 05/27/19 08:15 05/27/19 08:15 05/27/19 08:15 05/27/19 08:15 Intake & Output 05/26/19 05/27/19 05/28/19 06:59 06:59 06:59 Intake Total 4146 737 Output Total 4198 9020 Balance 6 -1682 Weight 70.1 kg 67.9 kg General appearance: PRESENT: no acute distress Head exam: PRESENT: atraumatic Eye exam: PRESENT: PERRLA Mouth exam: PRESENT: moist, tongue midline Teeth exam: PRESENT: poor dentation Neck exam: ABSENT: carotid bruit, JVD, lymphadenopathy, thyromegaly Cardiovascular exam: PRESENT: RRR. ABSENT: diastolic murmur, rubs, systolic murmur Vascular exam: PRESENT: normal capillary refill GI/Abdominal exam: PRESENT: normal bowel sounds, soft. ABSENT: distended, guarding, mass, organolmegaly, rebound, tenderness Rectal exam: PRESENT: deferred Gentrourinary exam: PRESENT: indwelling catheter Extremities exam: PRESENT: full ROM. ABSENT: calf tenderness, clubbing, pedal edema Neurological exam: PRESENT: alert, awake, oriented to person, oriented to place, oriented to time, oriented to situation, CN II-XII grossly intact. ABSENT: motor sensory deficit Psychiatric exam: PRESENT: appropriate affect, normal mood. ABSENT: homicidal ideation, suicidal ideation Skin exam: PRESENT: dry, intact, warm. ABSENT: cyanosis, rash Results Laboratory Results: 05/27/19 05:23 05/27/19 05:23 05/27/19 05/27/19 05:23 05:23 WBC 3.3 L RBC 4.10 L Hgb 13.7 Hct 40.4 MCV 99 H MCH 33.3 MCHC 33.8 RDW 16.1 H Plt Count 155 Seg Neutrophils % 60.1 Lymphocytes % 16.6 Monocytes % 19.2 H Eosinophils % 2.6 Basophils % 1.5 Absolute Neutrophils 2.0 Absolute Lymphocytes 0.5 Absolute Monocytes 0.6 Absolute Eosinophils 0.1 Absolute Basophils 0.0 Sodium 140.2 Potassium 4.8 Chloride 107 Carbon Dioxide 23 Anion Gap 10 BUN 10 Creatinine 0.57 Est GFR ( Amer) > 60 Est GFR (Non-Af Amer) > 60 Glucose 88 Calcium 9.6 Magnesium 2.2 Total Bilirubin 1.0 AST 166 H ALT 259 H Alkaline Phosphatase 104 Total Protein 7.7 Albumin 4.4 Impressions: Abdomen Ultrasound 05/25/19 08:00 IMPRESSION: NO ACUTE FINDINGS. Fatty liver and 1.5 cm parenchymal cyst. No gallstones or focal inflammatory changes. Assessment and Plan - Diagnosis (1) Alcohol dependence with withdrawal Is this a current diagnosis for this admission?: Yes Plan: Alcohol withdrawal with delirium-he is very anxious and agitated-we will start him on Ativan 1 every 3 and titrate up. We will also start him Valium 10 mg every 8 scheduled. We will start him on IV banana bag. He has a history of alcohol abuse which includes 20-25 beers daily. His last drink was about 48 hours ago. If he does not improve with IV medication then we may have to consider a Precedex drip and move him to the ICU. At this time he can go to the IMCU 05/25/[id number]-rzap-old male admitted with alcohol withdrawal with the delirium he was started on Precedex he is also on Valium as needed receiving IV banana bag daily he drinks 20-25 beers per day. To start him back on Ativan 2 mg IV every 2 hours as needed. Continue to watch for DTs. 05/26/[id number]-jqoe-old male admitted with history of heavy alcohol use and alcohol withdrawal symptoms he is on Precedex until this morning which was successfully discontinued is presently on IV diazepam and IV Ativan PRN for agitation I in my opinion he is stable enough to go to the telemetry 05/27/2019-no acute events in the last 24 hours. Patient is comfortably in the bed. Presently on IV Ativan as needed. (2) Elevated LFTs Is this a current diagnosis for this admission?: Yes (3) Essential hypertension Is this a current diagnosis for this admission?: Yes Plan: -most recently diagnosed and started on lisinopril-we will hold at this time and use hydralazine as needed. 05/25/2019-patient has history of diabetes mellitus newly diagnosed his vital signs today blood pressure is 162/90 he is on IV hydralazine every 6 as needed and also on lisinopril plan is to continue the present management. 05/26/2019-patient's latest blood pressure today is 121/60 stable. He is on lisinopril 20 mg p.o. daily and to continue IV hydralazine every 6 PRN for systolic blood pressure more than 150. 05/27/2019-blood pressure today is 154/110 on lisinopril 20 mg p.o. daily and hydralazine IV every 6 as needed plan is to increase the lisinopril to 20 twice daily. Most likely plan is to discharge home tomorrow. - Time Time Spent with patient: 15-24 minutes Medications reviewed and adjusted accordingly: Yes Anticipated discharge: Home
[2019-05-27] MEDS: LISINOPRIL 10 MG TABLET PO SCH (13:00)
[2019-05-27] MEDS: NORMAL SALINE 1000 ML 1,000 ML with POTASSIUM CHLORIDE 20 MEQ, MAGNESIUM SULFATE 8 MEQ,... IV SCH ×5 (17:08)
[2019-05-27] MEDS: FAMOTIDINE 20 MG TABLET PO SCH (23:01)
[2019-05-28] MEDS: DIAZEPAM 5 MG TABLET PO SCH ×2 (02:39→10:00)
[2019-05-28] MEDS: FAMOTIDINE 20 MG TABLET PO SCH (10:00)
[2019-05-28] MEDS: LISINOPRIL 10 MG TABLET PO SCH (10:00)
--- NOTE | 2019-05-28 10:38 | PDOC DISCHARGE SUMMARY ---
General - Admit/Disc Date/PCP Admission Date/Primary Care Provider: 05/24/19 08:18 Discharge Date: 05/28/19 - Discharge Diagnosis (1) Alcohol dependence with withdrawal Is this a current diagnosis for this admission?: Yes Summary: Alcohol withdrawal with delirium-he is very anxious and agitated-we will start him on Ativan 1 every 3 and titrate up. We will also start him Valium 10 mg every 8 scheduled. We will start him on IV banana bag. He has a history of alcohol abuse which includes 20-25 beers daily. His last drink was about 48 hours ago. If he does not improve with IV medication then we may have to consider a Precedex drip and move him to the ICU. At this time he can go to the [facility] 05/[id number]-tsae-old male admitted with alcohol withdrawal with the delirium he was started on Precedex he is also on Valium as needed receiving IV banana bag daily he drinks 20-25 beers per day. To start him back on Ativan 2 mg IV every 2 hours as needed. Continue to watch for DTs. 05/26/[id number]-vrlq-old male admitted with history of heavy alcohol use and alcohol withdrawal symptoms he is on Precedex until this morning which was successfully discontinued is presently on IV diazepam and IV Ativan PRN for agitation I in my opinion he is stable enough to go to the telemetry 05/27/2019-no acute events in the last 24 hours. Patient is comfortably in the bed. Presently on IV Ativan as needed. 05/28/2019-no acute events in the last 24 hours. Afebrile. Comfortable in the bed communicating in [place]. Not anxious no evidence of any depression. Patient is going to given a prescription for Xanax 1 mg every 6 as needed for 1 week I strongly advised him to follow-up with primary care physician in 1 week time. Patient agreed with the plan. He is going to be discharged today. (2) Elevated LFTs Is this a current diagnosis for this admission?: Yes Summary: 11/28/2018-patient is elevated with admitted with elevated LFTs slightly improving elevated LFTs most likely secondary to alcohol abuse. (3) Essential hypertension Is this a current diagnosis for this admission?: Yes Summary: -most recently diagnosed and started on lisinopril-we will hold at this time and use hydralazine as needed. 05/25/2019-patient has history of diabetes mellitus newly diagnosed his vital signs today blood pressure is 162/90 he is on IV hydralazine every 6 as needed and also on lisinopril plan is to continue the present management. 05/26/2019-patient's latest blood pressure today is 121/60 stable. He is on lisinopril 20 mg p.o. daily and to continue IV hydralazine every 6 PRN for systolic blood pressure more than 150. 05/27/2019-blood pressure today is 154/110 on lisinopril 20 mg p.o. daily and hydralazine IV every 6 as needed plan is to increase the lisinopril to 20 twice daily. Most likely plan is to discharge home tomorrow. 05/28/2019-patient blood pressure today is 118/63. Patient given a prescription for lisinopril 20 mg p.o. daily and patient was advised to be compliant with medication. - Additional Information Resuscitation Status: Full Code Discharge Diet: Cardiac Discharge Activity: Activity As Tolerated Prescriptions: Alprazolam [Xanax] 1 mg PO Q6HP PRN #24 tablet PRN Reason: Lisinopril [Prinivil 10 mg Tablet] 20 mg PO DAILY #30 tablet Home Medications: Alprazolam [Xanax] 1 mg PO Q6HP PRN #24 tablet 05/28/19 Lisinopril [Prinivil 10 mg Tablet] 20 mg PO DAILY #30 tablet 05/28/19 History of Present Illness History of Present Illness: ADELINE LIGHT is a 39 year old male 39 year old male with past medical history of hypertension who presented to the ED with anxiety and agitation. He is and speaks very little [place]ian. His friend is at bedside. He does not have any family. Most of his family is back in [place]. I spoke with patient and the friend who is at bedside. Per patient and friend he has a history of severe alcohol abuse which includes beer about 20-25 a day and he is been doing it for many years. Unfortunately he ended up going to the urgent care due to high blood pressure and he was told to stop drinking so he went cold turkey. On Saturday he was not feeling well so his friend gave him 2 cans of beer and on Saturday he had another 2 cans. Since then he has not been doing well and hence due to his increasing symptoms he was brought to the hospital for evaluation. At this time he is denying any chest pain, shortness of breath, dizziness or headaches. He does complain of some abdominal tenderness in the midepigastric region. In the ED he was found to be very anxious and agitated and hospitalist were consulted for admission for alcohol withdrawal. Hospital Course Hospital Course: 89-year-old male with history of heavy alcohol use admitted with alcohol withdrawal symptoms he was on Precedex in the ICU and later on he was transferred to the medical floor no acute events during the hospital stay. Patient is alert awake oriented communicating well today stable enough to go home today. Physical Exam Vital Signs: Temp Pulse Resp BP Pulse Ox 98.5 F 82 14 135/95 H 99 05/28/19 07:30 05/28/19 07:30 05/28/19 07:30 05/28/19 07:30 05/28/19 07:30 Intake & Output 05/27/19 05/28/19 05/29/19 06:59 06:59 06:59 Intake Total 737 1619 Output Total 2420 500 Balance -1683 1119 Weight 67.9 kg 68.9 kg General appearance: PRESENT: no acute distress, cooperative, well-developed, well-nourished Head exam: PRESENT: atraumatic Mouth exam: PRESENT: moist, tongue midline Teeth exam: PRESENT: poor dentation Neck exam: ABSENT: carotid bruit, JVD, lymphadenopathy, thyromegaly Respiratory exam: PRESENT: clear to auscultation disha. ABSENT: rales, rhonchi, wheezes Cardiovascular exam: PRESENT: RRR. ABSENT: diastolic murmur, rubs, systolic murmur GI/Abdominal exam: PRESENT: normal bowel sounds, soft. ABSENT: distended, guarding, mass, organolmegaly, rebound, tenderness Rectal exam: PRESENT: deferred Neurological exam: PRESENT: alert, awake, oriented to person, oriented to place, oriented to time, oriented to situation, CN II-XII grossly intact. ABSENT: motor sensory deficit Psychiatric exam: PRESENT: appropriate affect, normal mood. ABSENT: homicidal ideation, suicidal ideation Results Laboratory Results: 05/27/19 05:23 05/27/19 05:23 Impressions: Abdomen Ultrasound 05/25/19 08:00 IMPRESSION: NO ACUTE FINDINGS. Fatty liver and 1.5 cm parenchymal cyst. No gallstones or focal inflammatory changes. Qualifiers - * PATIENT BEING DISCHARGED WITH ANY OF THE FOLLOWING DIAGNOSIS: No VTE patient discharged on overlapping Therapy?: No Acute Heart Failure - Is this a Heart Failure Patient?: No Plan Discharge Plan: Patient is going home today. Time Spent: Greater than 30 Minutes
[2019-05-28] MEDS: ENOXAPARIN SODIUM INJ 40 MG/0.4 ML DISP.SYRIN SUBCUT SCH (11:48)
[2019-05-28 12:10] VITALS: BP 128/75
[2019-05-28] MEDS ORDERED: ONDANSETRON HCL INJ/PF 4 MG/2 ML SDV IV PRN (13:00)
== END 2019-05-28 14:29 | disposition home or self-care (01) | DRG 897 ==
LOC: ER 22:56 → EH 05-24 08:18 → ICU 05-24 19:48 → 5 05-26 23:15
PROVIDERS: ADMIT Internal Medicine; ATTEND Internal Medicine
DX: F10.231 Alcohol dependence with withdrawal delirium (principal); I10 Essential (primary) hypertension; E11.9 Type 2 diabetes mellitus without complications; F41.9 Anxiety disorder, unspecified; R79.89 Other specified abnormal findings of blood chemistry; Z79.899 Other long term (current) drug therapy
CPT/HCPCS: 36415; 76705; 80053; 80074; 80307; 81001; 82140; 82607; 82746; 83690; 83735; 84443; 85025; 85610; 85730; 86701; 93005; 93010; 96361; 96374; 96375; 96376; 99285; J0360; J1630; J1650; J2060; J2405; J3360; J3411; J3475; J3480; J3490; J7030; S0028